=== PATIENT | female | born 1995 | race Caucasian/White ===

== ENCOUNTER 2024-11-22 21:54 | Inpatient (IN) | payer BC, SELFPAY ==
--- NOTE | ~2024-11-22 | US_ITS ---
EXAMINATION: US OB limited DATE: 11/22/2024 23:15 INDICATION: Vaginal bleeding. Assess placenta. TECHNIQUE: Real-time ultrasound of the pelvis was performed. The interpreting radiologist was not present for the study. COMPARISON: None. FINDINGS: There is a single living fetus in vertex presentation. The placenta is fundal and not low-lying. Vascular flow seen on color Doppler within the heterogeneously hypoechoic retroplacental complex with no evident subchorionic hematoma. heart rate is 129 beats per minute (bpm). The amniotic fluid vo lume is subjectively normal. IMPRESSION: 1. Single living fetus in vertex presentation with heart rate of 129 bpm. 2. Normal fundal placenta. Reviewed, dictated and finalized at location A. IMPRESSION: 1. Single living fetus in vertex presentation with heart rate of 129 bpm . 2. Normal fundal placenta.
[2024-11-22 22:30] VITALS: PULSE 96; O2SAT 100
[2024-11-22 22:31] VITALS: BP 124/79; PULSE 97; RESP 19; TEMP 36.6
[2024-11-22 23:30] LABS: Add Urine Microscopic? YES; Appearance Urine Clear (Clear); Glucose Urine UA Negative (Negative); Leukocyte Esterase Ur Negative LEU/UL (Negative); Need Manual Microscopic Reviewed; Nitrate Urine Negative (Negative); Non Pathogenic Casts 0-2; Specific Grav Ur 1.007 (1.001-1.035)
[2024-11-23] VITALS (189 sets, daily range): BP systolic 44–137; BP diastolic 25–122; PULSE 49–166; RESP 15–18; TEMP 36.5–36.9; O2SAT 87–100
[2024-11-23 00:56] LABS: Hematocrit 36.4 % (37.0-47.0); Hemoglobin 12.2 g/dL (12.0-15.0); Mean Corpuscular HGB Conc 33.5 g/dl (32-36); Mean Corpuscular Hemoglobin 32.4 pg (26-34); Mean Corpuscular Volume 96.6 fl (80-100); Platelet Count Result 220 k/mm3 (150-375); Red Blood Count 3.77 M/mm3 (4.2-5.4); White Blood Count 11.7 K/mm3 (4.5-10.0)
[2024-11-23 01:08] LABS: INR 0.9; Partial Thromboplastin Time 25.0 Seconds (22.3-36.8); Prothrombin Time 12.5 Seconds (11.1-14.7)
[2024-11-23 01:09] LABS: Fibrinogen 380 mg/dl (215-510)
--- NOTE | 2024-11-23 02:38 | P.HP_ITS ---
H&P: HPI History of Present Illness Date/Time: 11/23/24 02:38 Chief Complaint: Bleeding Narrative: 29 y/o at 36 weeks with an EDC of 12/18/24. She presented with c/o bloody fluid at 2130. PNC uncomplicated. She states earlier in there was a question of SGA but dates were changed and no issues. She did have a recent abnormal 1 hour and was scheduled for upcoming three hour. She was seen at [facility] and was transitioning to be seen at [facility] this week. On presentation to L and D she did have dark blood at the perineum and blood on glove. She continued to have mild bleeding. She was yaya every 2-5 minutes. Brief limited ultrasound showed fundal placenta. One pocket of fluid measured ABDIRAHMAN 4. She states she did get rhogam during this . BT today Opos, antibody positive, type pending. Review of Systems Review of Systems: All systems reviewed & are unremarkable except as noted in HPI and below Constitutional: Constitutional: Reports no additional constitutional complaints and Denies headache(s) Eyes: Eyes: Denies spots in vision ENT: Reports system reviewed and no additional complaints, except as documented and Denies headache(s) Cardiovascular: Cardiovascular: Denies chest pain and Denies dyspnea Respiratory: Respiratory: Denies dyspnea Gastrointestinal: Gastrointestinal: Reports no additional gastrointestinal complaints Genitourinary: Genitourinary: Reports amenorrhea Musculoskeletal: Musculoskeletal: Reports no additional musculoskeletal complaints Integumentary/Breasts: Skin/Breast: Denies breast mass and Denies rash Neurologic: Denies headache(s) Psychiatric: Psychiatric: Reports no additional psychiatric complaints Meds Vital Signs Vital Signs - 24 hr 11/22/24 22:30 11/22/24 22:31 11/23/24 00:44 Pulse Rate 97 94 Blood Pressure 124/79 107/77 Pulse Oximetry 100 11/23/24 00:55 11/23/24 01:07 11/23/24 01:12 Pulse Rate Blood Pressure Pulse Oximetry 99 100 100 11/23/24 01:15 11/23/24 01:17 11/23/24 01:22 Pulse Rate 92 Blood Pressure 117/72 Pulse Oximetry 99 100 11/23/24 01:27 11/23/24 01:29 11/23/24 01:32 Pulse Rate 98 Blood Pressure 114/83 Pulse Oximetry 100 99 11/23/24 01:37 11/23/24 01:42 11/23/24 01:45 Pulse Rate 90 Blood Pressure 119/75 Pulse Oximetry 99 99 11/23/24 01:47 11/23/24 01:52 11/23/24 01:57 Pulse Rate Blood Pressure Pulse Oximetry 99 99 99 11/23/24 02:00 11/23/24 02:02 11/23/24 02:07 Pulse Rate 92 Blood Pressure 124/71 Pulse Oximetry 99 100 11/23/24 02:12 11/23/24 02:15 11/23/24 02:17 Pulse Rate 97 Blood Pressure 113/75 Pulse Oximetry 99 99 11/23/24 02:20 11/23/24 02:21 11/23/24 02:26 Pulse Rate Blood Pressure Pulse Oximetry 98 99 99 11/23/24 02:30 11/23/24 02:35 Pulse Rate 93 Blood Pressure 105/88 Pulse Oximetry 97 Exam Const: General: no acute distress Eyes: General: appearance normal, both eyes and all related structures Resp: Effort & Inspection: normal respiratory effort Cardio: Rate: regular rate GI: Other: Gravid no fundal tenderness no right upper quadrant pain : Other: dark blood with exam, cervix 2.5/70/-2, no BOW palpated Skin: General skin exam: no rashes or lesions noted Neuro: Cognition (Neuro): normal cognition Extrem: General: normal to inspection Psych: Mental Status: mental status grossly normal H&P: Results Labs Labs: Short CBC 11/23/24 Range/Units 00:40 WBC 11.7 H (4.5-10.0) K/mm3 Hgb 12.2 (12.0-15.0) g/dL Hct 36.4 L (37.0-47.0) % Plt Count 220 (150-375) k/mm3 Urine 11/22/24 Range/Units 23:04 Urine Color Amara (Yellow) Urine Appearance Clear (Clear) Urine pH 7.0 (5.0-9.0) Ur Specific [place] 1.007 (1.001-1.035) Urine Protein Negative (Negative) mg/dL Urine Glucose (UA) Negative (Negative) mg/dL Assessment and Plan Assessment and plan (1) Third trimester bleeding: Code(s): O46.93 - Antepartum hemorrhage, unspecified, third trimester Status: Acute Assessment and Plan: Clinical abruption. Possible PROM. Early labor. Will proceed with labor. If any signs of distress with her or baby or heavy bleeding then would need a section. She voiced understanding. Reassuring tracing. Hemodynamicly stable. Positive antibody screen. Per patient history she had rhogam with current and last . BT O positive.
[2024-11-23] MEDS: LACTATED RINGERS 1,000 ML 125 ML IV CONT ×2 (03:50→08:43)
[2024-11-23] MEDS: AMPICILLIN SODIUM 2 GM in SODIUM CHLORIDE 0.9% IV 100 ML 200 ML IVPB (03:51)
[2024-11-23 05:02] LABS: Syphilis IgG/IgM Antibody Non-Reactive (Nonreactive)
--- NOTE | 2024-11-23 05:30 | IVDEFINITY ---
Prior to administration of IV Definity the patient was educated on the risks and benefits of the imaging enhancing agent including potential adverse side effects. The patient verbalized understanding. Allergies were verified. No exclusion criteria were identified and at least one of the following inclusion criteria were met: 1) physician request, 2) patient technically difficult to image (per the [place] [employer]ocardi[employer] guidelines of two or more segments not discernable within the apical view), or 3) questionable left ventricular function. ?
[2024-11-23 05:31] LABS: Cannabinoid Screen Urine Negative (Negative)
[2024-11-23 05:50] LABS: HIV 1/2 Ab P24 Ag Result Negative (Negative)
--- NOTE | 2024-11-23 06:22 | WPDANESEPP ---
Anes - Eval Pre Procedure Procedure: Labor epidural Date/Time: 11/23/24 06:22 Surgeon: Ethel Preop Diagnosis: Abdominal pain with contractions Pre Op Diagnosis: Bleeding Patient Data Age: 29 Gender: F Height: Weight: Last Vital Signs Temp 97.8 F 11/23/24 04:45 Pulse 98 11/23/24 06:15 Resp 16 11/23/24 04:45 BP 109/80 11/23/24 06:15 Pulse Ox 100 11/23/24 06:19 Allergies Allergy/AdvReac Type Severity Reaction Status Date / Time dog dander Allergy Mild Itching Verified 11/23/24 03:54 Laboratory Tests 11/22/24 11/23/24 11/23/24 23:04 00:40 04:18 WBC 11.7 H K/mm3 (4.5-10.0) RBC 3.77 L M/mm3 (4.2-5.4) Hgb 12.2 g/dL (12.0-15.0) Hct 36.4 L % (37.0-47.0) MCV 96.6 fl (80-100) MCH 32.4 pg (26-34) MCHC 33.5 g/dl (32-36) RDW 13.0 % (11.5-14.5) Plt Count 220 k/mm3 (150-375) MPV 10.3 fl (7.4-10.4) PT 12.5 Seconds (11.1-14.7) INR 0.9 APTT 25.0 Seconds (22.3-36.8) Fibrinogen 380 mg/dl (215-510) Urine Color Amara (Yellow) Urine Appearance Clear (Clear) Urine pH 7.0 (5.0-9.0) Ur Specific [place] 1.007 (1.001-1.035) Urine Protein Negative mg/dL (Negative) Urine Glucose (UA) Negative mg/dL (Negative) Urine Ketones Negative mg/dL (Negative) Ur Blood (Man) 3+ H (Negative) Urine Nitrate Negative (Negative) Urine Bilirubin Negative (Negative) Urine Urobilinogen 0.2 mg/dL (<2.0) Add Ur Microanalysis Reviewed Leukocyte Esterase Rfl Negative RAF/UL (Negative) Urine RBC 3-5 H /hpf (0-2) Urine WBC 0-5 /hpf (0-3) Ur Squamous Epith Cells Occasional /hpf (Few) Urine Bacteria None seen /hpf Urine Casts 0-2 Urine Opiates Screen Negative (Negative) Urine Methadone Screen Negative (Negative) Ur Barbiturates Screen Negative (Negative) Ur Phencyclidine Scrn Negative (Negative) Ur Amphetamine Screen Negative (Negative) U Benzodiazepines Scrn Negative (Negative) Urine Cocaine Screen Negative (Negative) U Cannabinoids Screen Negative (Negative) Syphilis IgG/IgM Ab Non-reactive (Nonreactive) HIV 1&2 Ab/P24 Ag 4thGn Negative (Negative) Blood Type Antibody Screen Antibody Identification Pending Antigen Identification Pending VANDANA, IgG Interpret Pending VANDANA, Poly Interpret Pending VANDANA, Complement Interp Pending KB Hemoglobin Negative : gestational age HCG: positive Patient hx anesthesia problems: none Family hx anesthesia problems: none Results Review: All pre-operative results and documents have been reviewed as part of the pre-operative evaluation. [facility] Past Medical History Medical History (Updated 11/23/24 @ 06:22 by Joon Barrera Jr., CRNA) and not yet delivered Social History Social History Smoking status: Never smoker Second hand tobacco smoke exposure: No Substance use: never Lack of Transportation: No Lack of Food: Never True Current Housing: I Have Housing Concerned About Future Housing: No Difficulty Paying Gas/Electric Bills: No Difficulty Paying for Meds: No Currently Unemployed: No Education: Master's Degree or Higher Difficulty w/ Childcare or Family Care: No Spiritual care concerns: No Exam Day of Procedure 11/23/24 06:22 Patient weight: overweight
[2024-11-23] MEDS: OXYTOCIN 30 UNITS/NS 500 ML 30 UNITS/500 ML BAG IV CONT (07:00)
[2024-11-23] MEDS: OXYTOCIN 30 UNITS/NS 500 ML 30 UNITS/500 ML BAG 125 UNITS IV CONT (12:08)
--- NOTE | 2024-11-23 12:41 | S_PTH ---
PATIENT: Valencia Mendez LOC: [facility] U#:[id number] AGE/SX: 29/F ROOM: [facility] RE11/23/[address]: Dima Davenport MD : 1995 BED: 1 DIS: 11/25/2024 SPEC #: [id number] RECD: 11/23/24 12:58 STATUS: JOSE REAndre #: [id number] CHERYL: 11/23/24 12:[address]: Dima Davenport DEPT: [facility] Surgical RECD BY: Belle Christianson MLT, ([facility]) ENTERED: 11/23/24 12:59 SP TYPE: Surgical OTHR DR: PHYSICIAN NOT ON STAFF Tissues: A - Placenta Procedures: Hematoxylin and Eosin Stain Gross and Microscopic Level 5
--- NOTE | 2024-11-23 14:24 | PM.OBPRVD ---
OB - Vaginal Delivery Note Procedure Delivery date: 11/23/24 Events: Other (Vaginal bleeding ) Delivery augmentation: Pitocin Delivery monitor: External FHT Route of delivery: Episiotomy description: None Laceration Description: Vaginal and Other (left periurethral) Delivery repair: vicryl (2.0 vicryl) Specimen: Yes Quantitative Blood Loss (ml): 400 Anesthesia type: Epidural Disposition: Floor Complications: No immediate complications Narrative: She presented to L and D with complaints of vaginal bleeding. She had mild vaginal bleeding. Possible LOF 930 pm, since no BOW palpated at her exam. She was yaya. Cervix was dilating. Ampicillin started for GBS prophylaxis for and on chart review, she had GBS in urine in early . Abruption labs normal. Bedside ultrasound normal. tracing reassuring. She progressed into active labor. She progressed to complete. Forebag ruptured clear fluid. She delivered a female infant. Nose mouth suctioned with bulb. The rest of delivered. Infant placed on maternal abdomen vigorously crying. Delayed cord clamping for one minute. Cord doubly clamped and cut. Pitocin started. Placenta delivered spontaneously, trailing membranes. There was after coming clots. Uterine tone good. She sustained a periurethral left laceration and vaginal laceration at introitus repaired with 3.0 vicryl. Total ebl 400cc. Baby Date of : 11/23/24 Time of : 11:21 Gestational Age by Date: 36 Infant gender: Female Weight (pounds): 6 Weight (ounces): 5 presentation: vertex position: Right Occiput Anterior Placenta delivery description: Spontaneous score one minute: 8 score five minutes: 8
--- NOTE | 2024-11-23 16:22 | PC.NURSE ---
1610. Introductions were made, then consulted with patient to assess needs related to . Discussed with mother her plans to feed her and the experience so far. Encouraged mother to express any questions or concerns she has regarding feedings. Advised her to call out for a latch check or if she needs assistance waking or positioning baby. Reviewed the blue feeding worksheet for required output and feeding at least 8-12 times every 24 hours. Resources provided for inpatient and outpatient services with the feeding sheet, mom/baby guide, and name/number written on the communication board. Mother voiced understanding of information and will call if there is a request for assistance. Observed mother latching to the left breast in cross cradle position. was able to maintain an appropriate latch. Mother declines nipple pain/discomfort throughout feeding. Encouraged mother to keep infant awake and nursing at the breast for as long as baby desires. Mother taught to listen for swallowing during feedings. Reviewed using the blue feeding sheet to record time and duration of feeding. Mother voiced understanding of the education shared, to call for assistance if the does not latch or if there is discomfort with . name/number on communication board. Reported to the Primary RN.?
[2024-11-24] MEDS: ACETAMINOPHEN 325 MG TABLET 650 MG PO ×3 (04:10→17:20)
[2024-11-24 05:05] LABS: Hematocrit 32.8 % (37.0-47.0); Hemoglobin 10.7 g/dL (12.0-15.0)
[2024-11-24 07:30] VITALS: PULSE 85; RESP 16; O2SAT 98
[2024-11-24 07:55] VITALS: BP 108/71; PULSE 85; RESP 16; TEMP 36.6; O2SAT 98
--- NOTE | 2024-11-24 09:56 | P.PNOB_ITS ---
OB - PN: Subj Subjective Date/time seen: 11/24/24 09:56 Patient comments: pain well controlled, tolerating diet and other (Decreasing lochia.) baby status: doing well and nursing well [place] feeding status: exclusively breast feeding OB - PN: Obj Data Labs 11/24/24 03:57 Labs: Laboratory Results - last 24 hr 11/23/24 11/23/24 11/24/24 09:31 11:04 03:57 Hgb 10.7 L Hct 32.8 L POC Capillary Glucose 68 71 OB - PN A/P Plan day: 1 Plan: routine care Comments: Patient doing well. Time Spent With Patient Time: Total time spent is greater than 50% in coordination of care (as documented) at patient's floor/unit and/or counseling patient: Exam 2 Psych: Affect: normal affect Other: Abd: fundus firm below umbilicus, nontender Perineum: healing Ext: nontender
[2024-11-24] MEDS: MULTIVIT/MIN/PREN/FOL AC/IRON TABLET 1 TAB PO (10:54)
[2024-11-24] MEDS: DOCUSATE SODIUM 100 MG CAPSULE PO (10:55)
--- NOTE | 2024-11-24 12:58 | PC.NURSE ---
1250. Mother verbalizes she is able to independently latch infant with appropriate positioning and alignment. She denies any nipple discomfort and is responsively . is currently meeting outcomes for weight, output, jaundice, blood sugar and feeding frequencies of 8-12 times in 24 hours. Mother declines any additional assistance or education at this time. Mother is encouraged to call for assistance if her doesn?t latch, pain with latching, questions or concerns. Mother voiced understanding of information shared along with the mom/baby guide for an additional resource. Reported to the Primary RN.
--- NOTE | 2024-11-24 14:24 | WPDANLDPN2 ---
Anes-Prog Note L&D Date/Time: 11/24/24 14:24 Comfortable throughout: labor and delivery Neuraxial method: epidural Epidural/Spinal procedure site: clean & non-tender Neuro status: Neuro function grossly intact. Cardiovascular status: normal Respiratory status: normal Airway patency: baseline Mental status: baseline Post-Op hydration status: normal Vital Signs: Last Vital Signs Temp 36.6 C 11/24/24 07:55 Pulse 85 11/24/24 07:55 Resp 16 11/24/24 07:55 BP 108/71 11/24/24 07:55 Pulse Ox 98 11/24/24 07:55 O2 Del Method Room Air 11/24/24 07:30 Pain score (VAS): 1 Post-procedural complaints: none Patient feedback: Patient satisfied with anesthetic care.
[2024-11-24 19:45] VITALS: BP 116/75; PULSE 85; RESP 18; TEMP 36.9; O2SAT 100
[2024-11-25] MEDS: ACETAMINOPHEN 325 MG TABLET 650 MG PO ×3 (00:30→16:06)
[2024-11-25 07:43] VITALS: BP 127/85; PULSE 80; RESP 18; TEMP 36.3; O2SAT 100
--- NOTE | 2024-11-25 08:13 | PM.OBDSVD ---
DS: Admitting Diagnosis Discharge Date 11/24/2024 <Dima Davenport MD - Last Filed: 11/26/24 05:01> 11/25/2024 <Lorena Cates MD - Last Filed: 11/25/24 09:31> Admitting Diagnosis 3rd trimester bleeding consistent with mild clinical abruption <Dima Davenport MD - Last Filed: 11/26/24 05:01> DS: Discharge Diagnosis Discharge Diagnosis (1) Third trimester bleeding: Code(s): O46.93 - Antepartum hemorrhage, unspecified, third trimester <Dima Davenport MD - Last Filed: 11/26/24 05:01> Status: Acute <Dima Davenport MD - Last Filed: 11/26/24 05:01> (2) Placenta abruption, delivered, current hospitalization: Code(s): O45.90 - Premature separation of placenta, unspecified, unspecified trimester <Dima Davenport MD - Last Filed: 11/26/24 05:01> Status: Acute <Dima Davenport MD - Last Filed: 11/26/24 05:01> (3) Vaginal delivery: Code(s): O80 - Encounter for full-term uncomplicated delivery <Dima Davenport MD - Last Filed: 11/26/24 05:01> Status: Acute <Dima Davenport MD - Last Filed: 11/26/24 05:01> OB - DS: Summary Hospital Course Hospital Course: patient was admitted to the hospital after having bleeding. She had normal abruption labs. No hemodynamic instability. She was starting to contract she did progress into labor. She had Pitocin augmentation. She then had an uncomplicated vaginal delivery. She did well . Minimal lochia, vital stable. Postop H&H was 10.7/32.8. Baby was doing well. She had adequate pain control on day 1 was ambulating well. tolerating regular food on day 1. <Dima Davenport MD - Last Filed: 11/26/24 05:01> OB Procedures : Ultrasound <Dima Davenport MD - Last Filed: 11/26/24 05:01> OB Procedures Intrapartum: Spontaneous Vag Delivery <Dima Davenport MD - Last Filed: 11/26/24 05:01> OB Procedures: : None <Dima Davenport MD - Last Filed: 11/26/24 05:01> Peripartum Data Delivery Method: Natural Vaginal <Dima Davenport MD - Last Filed: 11/26/24 05:01> Laceration Description: Vaginal and Other (left periurethral) <Dima Davenport MD - Last Filed: 11/26/24 05:01> Episiotomy description: None <Dima Davenport MD - Last Filed: 11/26/24 05:01> complications: none <Dima Davenport MD - Last Filed: 11/26/24 05:01> Status at Discharge Functional status at discharge: independent ambulation <Dima Davenport MD - Last Filed: 11/26/24 05:01> Overall status at discharge: patient is back to baseline <Lorena Cates MD - Last Filed: 11/25/24 09:31> Time Spent with Patient Time attestation: Total time spent providing and/or coordinating discharge services: <Dima Davenport MD - Last Filed: 11/26/24 05:01> Exam Const: General: cooperative <Dima Davenport MD - Last Filed: 11/26/24 05:01> Orientation/consciousness: oriented to person, oriented to place and oriented to time <Dima Davenport MD - Last Filed: 11/26/24 05:01> HENMT: Face/Nose/Sinus: Normal external nose present <Dima Davenport MD - Last Filed: 11/26/24 05:01> Eyes: General: appearance normal, both eyes and all related structures <Dima Davenport MD - Last Filed: 11/26/24 05:01> Resp: Effort & Inspection: normal respiratory effort <Dima Davenport MD - Last Filed: 11/26/24 05:01> Auscultation: clear to auscultation bilaterally <Lorena Cates MD - Last Filed: 11/25/24 09:31> Cardio: Rate: regular rate <Lorena Cates MD - Last Filed: 11/25/24 09:31> GI: Inspection: normal to inspection <Dima Davenport MD - Last Filed: 11/26/24 05:01> GI Palp: No abdominal tenderness and Yes Soft to palpation <Lorena Cates MD - Last Filed: 11/25/24 09:31> Auscultation: normal bowel sounds <Lorena Cates MD - Last Filed: 11/25/24 09:31> : Other: fundus firm <Lorena Cates MD - Last Filed: 11/25/24 09:31> Skin: General skin exam: normal color <Dima Davenport MD - Last Filed: 11/26/24 05:01> Neuro: General: oriented to person, oriented to place and oriented to time <Dima Davenport MD - Last Filed: 11/26/24 05:01> Extrem: General: normal to inspection and no calf tenderness <Dima Davenport MD - Last Filed: 11/26/24 05:01> Psych: Appearance: grossly normal <Dima Davenport MD - Last Filed: 11/26/24 05:01> Mental Status: mental status grossly normal <Dima Davenport MD - Last Filed: 11/26/24 05:01> Affect: normal affect <Lorena Cates MD - Last Filed: 11/25/24 09:31> Attitude: cooperative <Lorena Cates MD - Last Filed: 11/25/24 09:31> DS: Data Data Completed and Pending Pending studies at discharge: Pending at discharge 11/23/24 12:41 Surgical [PTH] Routine <Dima Davenport MD - Last Filed: 11/26/24 05:01> Labs on day of discharge: Labs from last 24 hours 11/24/24 11/23/24 11/23/24 03:57 11:04 09:31 Hgb 10.7 L Hct 32.8 L POC Capillary Glucose 71 68 <Dima Davenport MD - Last Filed: 11/26/24 05:01> Discharge Plan Discharge Attending physician on discharge: Dima Davenport <Dima Davenport MD - Last Filed: 11/26/24 05:01> Dima Davenport <Lorena Cates MD - Last Filed: 11/25/24 09:31> Consulting providers: Joon Barrera Jr. <Dima Davenport MD - Last Filed: 11/26/24 05:01> Discharging Clinician: Lorena Cates <Dima Davenport MD - Last Filed: 11/26/24 05:01> Lorena Cates <Lorena Cates MD - Last Filed: 11/25/24 09:31> Anticipated Discharge Date/Time: 11/25/24 10:28 <Dima Davenport MD - Last Filed: 11/26/24 05:01> Patient Disposition: Home <Dima Davenport MD - Last Filed: 11/26/24 05:01> Activity: may shower and pelvic rest <Dima Davenport MD - Last Filed: 11/26/24 05:01> may shower and pelvic rest <Lorena Cates MD - Last Filed: 11/25/24 09:31> Diet: regular <Dima Davenport MD - Last Filed: 11/26/24 05:01> regular <Lorena Cates MD - Last Filed: 11/25/24 09:31> Discharge Instructions: Education: Mom and Baby Guide Given to: Mother Follow-Up: Call your delivering provider's office for an appointment to be seen in: 4-6 weeks [facility]. Appointment Date/Time: Wednesday, November 27, 2024 at 8:00 a.m. What to expect at your follow-up visit: Blood Pressure Check Physical Assessment Call [phone] if you are unable to keep your appointment time. BREAST CARE: * Wear a snug supportive bra. * For engorgement discomfort: Breast Feeding: * Apply warm moist washcloths * Express milk as needed to relieve engorgement * Wear loose clothing * For sore nipples: * Identify correct latch-on * Apply warm moist washcloths before and after nursing * Air dry nipples after nursing * May apply Lansinoh cream to nipples EPISIOTOMY/PERINEAL CARE: * Until bleeding stops, use your abhijeet bottle after urinating * Change your pad frequently throughout the day * You may take sitz baths several times a day (fill your bathtub with warm water and soak for 20 minutes.) Do NOT bathe in the water * No tub baths until seen by your physician - You may shower ACTIVITY: * Rest as much as possible. * Do not exercise or lift anything heavier than your baby (such as laundry or other children.) * Avoid stairs or driving as much as possible. * Do not put anything into the vagina. No douching, tampons, or sexual activity until seen by physician. NOTIFY PHYSICIAN IF YOU HAVE ANY QUESTIONS OR IF ANY OF THE FOLLOWING SYMPTOMS OCCUR: * If your perineum becomes red, swollen, or more painful than what you have experienced in the hospital. * If your vaginal bleeding becomes foul smelling. * If your vaginal bleeding becomes more heavy than a period or if your bleeding changes from pink to bright red. However, you may pass an occasional walnut-sized clot once or twice for the first week . * If you experience a sharp, shooting pain in you calves. * If you discover a hard, reddened area on your breast or if you experience flu-like symptoms. DIET: * Eat regular, well-balanced meals. * Drink plenty of fluids daily. If , drink to thirst. Call Dr. Davenport's office to schedule visit for 4-6 weeks after delivery. May take over the counter Ibuprofen and Tylenol. Follow package directions. Take daily vitamins. <Dima Davenport MD - Last Filed: 11/26/24 05:01> Patient Language: Tongan <Dima Davenport MD - Last Filed: 11/26/24 05:01> Stand Alone Forms: General Discharge Information <Dima Davenport MD - Last Filed: 11/26/24 05:01> Follow-up/Referrals: Dima Davenport MD [Physician, BROACH OPERATOR] - Call for Appointment Referral Note: Schedule visit for 4-6 weeks after delivery <Dima Davenport MD - Last Filed: 11/26/24 05:01> Discharge Medications: New acetaminophen 325 mg Tablet 650 mg PO Q6H PRN (Reason: Mild Pain (1-3) Or Headache) Qty: 60 0RF docusate sodium 100 mg Capsule 100 mg PO BID PRN (Reason: Constipation) Qty: 40 0RF ibuprofen 600 mg Tablet 600 mg PO Q6H PRN (Reason: Cramping) Qty: 40 0RF <Dima Davenport MD - Last Filed: 11/26/24 05:01> Date of admission: 11/22/24 21:54 <Dima Davenport MD - Last Filed: 11/26/24 05:01> Primary Care Provider: PHYSICIAN NOT ON STAFF,NONSTAFF <Dima Davenport MD - Last Filed: 11/26/24 05:01> Admitting Provider: Dima Davenport <Dima Davenport MD - Last Filed: 11/26/24 05:01> Attending physician on admission: Dima Davenport <Dima Davenport MD - Last Filed: 11/26/24 05:01> Condition: Stable <Dima Davenport MD - Last Filed: 11/26/24 05:01>
[2024-11-25] MEDS: DOCUSATE SODIUM 100 MG CAPSULE PO (08:53)
[2024-11-25] MEDS: MULTIVIT/MIN/PREN/FOL AC/IRON TABLET 1 TAB PO (08:53)
[2024-11-25 09:00] VITALS: PULSE 80; RESP 18; O2SAT 100
--- NOTE | 2024-11-25 11:45 | PC.NURSE ---
Mother verbalizes she is able to independently latch with appropriate positioning and alignment. She denies any nipple discomfort and is responsively . Baby has audible swallows and mom had an abundant milk supply with her first baby that came in on day 3 . is currently meeting outcomes for weight (8% loss), output (mom knows to watch output as a sign of adequate intake), jaundice, blood sugar and feeding frequencies of 8-12 times in 24 hours. Because baby is 36 weeks gestation, mom is advised to initiate pumping, even if she only does it a few times a day. Hands On Pumping handout given with Late handout. Mom has a breast pump at home and knows that a hospital pump is available if needed. Patient states that she will 'keep it in mind' to pump and will call out for further pumping guidance as needed. Patient seems confident and comfortable with her current plan. Mother declines any additional assistance or education at this time. Mother is encouraged to call for assistance if her infant doesn?t latch, pain with latching, questions or concerns. Mother voiced understanding of information shared along with the mom/baby guide for an additional resource. Reported to the Primary RN.
[2024-11-25] MEDS: RHO(D) IMMUNE GLOBULIN 300 MCG/2 ML SYRINGE IM (13:35)
--- NOTE | 2024-11-25 13:40 | PC.NURSE ---
Patient called out with some questions about initiating pumping. She is having her pump and bottles brought in from home. She pumped with her last baby and used a Lansinoh pump but has a Spectra now. We reviewed breast milk storage and use, frequency and duration of pumping, and syringe vs. bottle feeding any pumped milk. Patient knows that we have refrigerator and freezer milk storage options. She thinks that baby is sleepier today than yesterday and needs more stimulation to stay awake. Discussed expected behaviors of a 36 week and the importance of ensuring adequate breast stimulation until baby is able to feed effectively at every breast feeding. Primary RN updated.
[2024-11-27 08:06] VITALS: BP 121/89; PULSE 101; RESP 18; TEMP 36.8; O2SAT 100
--- OUTSIDE RECORDS SUMMARY | 2024-11-27 13:17 | XMS_ITS | Encounter Summary ---
Author Organization [facility] Address [address] [place] [address] Care Team Providers Care Art Gallery Internship Name Role Phone Unknown, Provider Primary Care Provider Unavaila ble Reason for Visit * Reason Onset Date Comments Follow-up 11/07/2024 Follow up; retun ing patient call Encounter Details Date Type Department Care Team (Late st Contact Info) Description 11/07/2024 Telephone [facility] - DESK EDITOR [address] [place] [address] Yamel Wilson APRN-[employer] SEQUESTRATION PLANT MANAGER [address] [place] [address] Follow-up (Follow up; retuning patient call) Social History Tobacco Use Types Packs/Day Years Used Date Smoking Tobacco: Never Assessed Estimated Date of Delivery Comme nts Yes 12/18/2024 Based on Ultraso und Sex and Gender Information Value Date Recorded Sex Assigned at Not on file Legal Sex Female 9:35 AM CDT Gender Identity Not on file Sexual Orientation Not on file documented as of this encounter Miscellaneous Notes * Telephone Encounter - Saritha Coates - 11/07/2024 9:47 AM CDT Patient has tested negative for covid but she still has symptoms and want to know what she should do Cb [phone] documented in this encounter Plan of Treatment Not on file documented as of this encounter Visit Diagnoses Not on filedocumented in this encounter Care Teams Art Gallery Internship Relationship Specialty Start Date End Date Unknown, Provider PCP - General 06/21/24 documented as of this encounter
--- OUTSIDE RECORDS SUMMARY | 2024-11-27 13:17 | XMS_ITS | Encounter Summary ---
Author Organization [facility] Address [address] [place] [address] Care Team Providers Care Impregnating Helper Name Role Phone Unknown, Provider Primary Care Provider Unavaila ble Reason for Visit * Reason Onset Date Comments Care 11/27/2024 Encounter Details Date Type Department Care Team (Late st Contact Info) Description 11/27/2024 Telephone [facility] - PROGRAM RESEARCH SPECIALIST [address] [place] [address] Group, u Program Manager [address] [place], [place] [id number] Care Social History Tobacco Use Types Packs/Day Years Used Date Smoking Tobacco: Never Smokeless Tobacco: Never Alcohol Use Standard Drinks/Week Comments Not Currently 0 (1 standard drink = 0.6 oz pur e alcohol) Education Answer Date Recorded What is the highest level of school you have completed or the highest degree you have received? Professional school degree (e.g., MD, DDS, DVM, MIKAEL) 11/17/2024 Estimated Date of Delivery Comme nts Yes 12/18/2024 Based on Ultraso und Sex and Gender Information Value Date Recorded Sex Assigned at Not on file Legal Sex Female 9:35 AM CDT Gender Identity Not on file Sexual Orientation Not on file Occupation Industry Job Start Date Job End Date [employer] Not on file Not on file Not on file documented as of this encounter Miscellaneous Notes * Telephone Encounter - Wang Baiie - 11/27/2024 8:42 AM CDT Good morning, Patient calling to inform the office that she delivered her baby early. She delivered over the weekend at [facility] in [place]. She has her 6 week post check up set up with them as well. CB: [phone] No need for a return call and appointments look like they have all been canceled accordingly. Thank you so much documented in this encounter Plan of Treatment Not on file documented as of this encounter Visit Diagnoses Not on filedocumented in this encounter Care Teams Impregnating Helper Relationship Specialty Start Date End Date Unknown, Provider PCP - General 06/21/24 documented as of this encounter
--- OUTSIDE RECORDS SUMMARY | 2024-11-27 13:17 | XMS_ITS | Encounter Summary ---
Author Organization [facility] Address [address] [place] [address] Care Team Providers Care Raw Products Director Name Role Phone Unknown, Provider Primary Care Provider Unavaila ble Reason for Visit * Reason Onset Date Comments Returned Call 11/07/2024 Encounter Details Date Type Department Care Team (Late st Contact Info) Description 11/07/2024 Telephone [facility] - COMMERCIAL REAL ESTATE UNDERWRITER [address] [place] [address] Yamel Wilson APRN-SINGLE STROKE PREFORMER [address] [place] [address] Returned Call Social History Tobacco Use Types Packs/Day Years [...] encounter Miscellaneous Notes * Telephone Encounter - Fela Metzger RN - 11/07/2024 11:17 AM CDT States tested positive for Covid Wednesday at Urgent Care. She has been asymptomatic until 1-2 days ago. Expresses symptoms has gotten progressively worse over the last couple days. During thelast 36 hrs has taken a total of 3 home Covid tests, in which have been negative. C/o a sore throaton left side of throat and experiencing hot flashes, chills, and sinus pressure. Denies ever having a fever, however states her normal body temperature runs on the lower end and usually has temps of 99 when she does have a fever. Reports feeling good movement, no contractions, and no increasing SOB. She is at family's house currently while is recovering. Advised to visit an UrgentCare to get tested for flu, COVID, and other respiratory illnesses. Discussed to visit the ER, [facility],or the closest clinic/hospital if she experiences increasing SOB, dyspnea, fatigue, decreased fetalmovement, severe vomiting, diarrhea, contractions, or severe rhythmic back pain. Verbalizes understanding. Says she will go to today for testing. List of medications sent via [employer] that are ok to take during . * Telephone Encounter - Nancy Lizama - 11/07/2024 10:55 AM CDT Pt returning call to office. CB: [phone] documented in this encounter Plan of Treatment Not on file documented as of this encounter Visit Diagnoses Not on filedocumented in this encounter Care Teams Raw Products Director Relationship Specialty Start Date End Date Unknown, Provider PCP - General 06/21/24 documented as of this encounter
--- OUTSIDE RECORDS SUMMARY | 2024-11-27 13:17 | XMS_ITS | Clinical Summary ---
Author Organization [facility] [employer] Address [address] [place] [address] Care Team Providers Care Human Resources Recruiter Name Role Phone Unknown, Provider Primary Care Provider Unavaila ble Source Comments [facility] [employer],non-owned Affiliates and Associated Physician Practices is amultiple site organization consisting of ambulatory clinics and hospital sitesin [place], [place], [place] and [place]. This disclosure is being madepursuant to the Care Everywhere program and may not contain all information available regarding this patient. Last updated 17.[facility] [employer] Allergies Active Allergy Reactions Criticality Noted Date Comments Cat Hair Extract Unknown 06/09/2024 Dog dander Medications * Be aware that medications may not be up to date on this document. Alwaysverify current medications with the patient. Vit-Fe Fumarate-FA ( vitamin) 28-0.8 MG tablet Take 1 (one) tablet by mouth once daily Active Active Problems Problem Noted Date Diagnosed Date High-risk , third trimester 11/17/2024 History of migraine during 06/21/2024 Overview (06/21/2024): Patient has a history of migraine headaches. The effect of is difficulty to predict - symptoms may worsen in early but approximately 30% of women note improvement during and 30% have no change in their headache frequency. Fortunately migraines are not associated with any increased risks of adverse outcomes. Reviewed the benefits of non-pharmacologic approaches to pain relief, avoidance of triggers, and prevention with Magnesium Oxide and Vitamin B2. Recommended Tylenol 1000mg for first line treatment. Acetaminophen intake should not exceed 4000 mg per day. Triptans are are acceptable in as a second line treatment - Maxalt is preferred, but if the patient has had good results with other triptans, the class of medications is overall safe. Discussed that it she still has a persistent headache despite acetaminophen and triptans, she should go to the emergency department or OB triage for additional assessment. Treatments in the ED compatible with may include IV magnesium, IV metoclopramide, and IV diphenhydramine. We also reviewed that a headache with a sudden onset, associated with elevated BP, or with different neurologic deficits from what she is already having would also warrant a visit to the emergency department to exclude stroke, preeclampsia, or other concerns. If headaches are of sufficient frequency and intensity to warrant chemoprophylaxis, propranolol or amitriptyline can be considered. NSAIDs, barbiturates, and ergotamine compounds should be avoided. If third line treatment is needed, conside referral to neurology. Recommendations: Start over the counter Magnesium Oxide and Vitamin B2 daily for prevention. When aura begins take 1000mg tylenol. Can consider Maxalt based on severity of headache and life events. POTS (postural orthostatic tachycardia syndrome) 06/21/2024 Overview (06/21/2024): has a variable effect on POTS symptoms. Some patients will experience improvement in symptoms; some will experience worsening in symptoms; and some will have no change in status. Management of POTS in is largely supportive. Slow, deliberate position changes can be helpful to give the body ample time to adjust. Water and salt supplementation coupled with exercise are the first line treatments, but patients who fail conservative management can be treated with beta blockers (metoprolol and propranolol are preferred) or fludrocortisone, all of which are safe in . Recommendations: Supplement water and salt with goals of 3L of water and 3-4g of sodium daily Aerobic exercise 3-4 times a week for 30-40 minutes If symptoms persist, establish care with local cardiology or internal medicine physician Short interval between pregn ancies affecting , antepartum 06/21/2024 Overview (06/21/2024): Interpregnancy intervals less than 18 months are associated with increased risks of some adverse outcomes. There are small increased risks of delivery, FGR/SGA, and low birthweight. Recommendations: Cervical length screening to assess for possible risk factors for PTD. Follow serial growth assessments in the 2nd and 3rd trimesters Estimated Date of Delivery Comme nts Yes 12/18/2024 Based on Ultraso und Encounters Date Type Department Care Team Description 11/27/2024 Telephone [facility] - DIRECTOR OF WOMEN'S SERVICES [address] [place] [id number] Group, u [facility] 11/22/2024 Telephone [facility] - DIRECTOR OF WOMEN'S SERVICES [address] [place] [id number] [facility], Clinic Question 11/17/2024 2:40 PM CDT visit [facility] - DIRECTOR OF WOMEN'S SERVICES [address] [place] [address] Liyah Dent MD GA: [id number] 11/17/2024 Travel 11/07/2024 Telephone [facility] - DIRECTOR OF WOMEN'S SERVICES [address] [place] [address] Yamel Wilson APRN-CNP Returned Call 11/07/2024 Telephone [facility] - DIRECTOR OF WOMEN'S SERVICES [address] [place] [address] Yamel Wilson APRN-CNP Follow-up (Follow up; retuning patient call) 11/04/2024 Telephone [facility] [address] [place] [address] Angela Cedeno MD Question 10/26/2024 7:30 AM CDT - 10/26/2024 11:59 PM CDT Hospital Encounter [facility] [address] [place] [address] Shiela Hanley MD Discharge Disposition: Home or Self Care 10/26/2024 Telephone [facility] - DIRECTOR OF WOMEN'S SERVICES [address] [place] [address] Shorey, Yamel, FORMING YARDAGE CONTROL OPERATOR-STICK FEEDER Appointment (Call to schedule a new pt appointment) 10/05/2024 7:35 AM CDT - 10/05/2024 11:59 PM CDT Hospital Encounter [facility] [address] [place] [address] Shiela Hanley MD Discharge Disposition: Home or Self Care 10/05/2024 7:30 AM CDT - 10/05/2024 7:34 AM CDT Hospital Encounter [facility] [address] [place] [address] Shiela Hanley MD Discharge Disposition: Home or Self Care 09/28/2024 7:33 AM CDT - 09/28/2024 11:59 PM CDT Hospital Encounter [facility] [address] [place] [address] Evens Casarez DO DIRECTOR OF WOMEN'S SERVICES Discharge Disposition: Home or Self Care 09/28/2024 7:30 AM CDT - 09/28/2024 7:32 AM CDT Hospital Encounter [facility] [address] [place] [address] Evens Casarez DO DIRECTOR OF WOMEN'S SERVICES Discharge Disposition: Home or Self Care 09/21/2024 8:03 AM CDT - 09/21/2024 11:59 PM CDT Hospital Encounter [facility] [address] [place] [address] Shiela Hanley MD Discharge Disposition: Home or Self Care 09/21/2024 7:30 AM CDT - 09/21/2024 8:02 AM CDT Hospital Encounter [facility] [address] [place] [address] Shiela Hanley MD Discharge Disposition: Home or Self Care 09/18/2024 Telephone [facility] [address] [place] [address] Martita Tan RN Results 09/12/2024 8:19 AM CDT - 09/12/2024 11:59 PM CDT Hospital Encounter [facility] [address] [place] [phone] Addison Martinez MD Discharge Disposition: Home or Self Care 09/12/2024 8:19 AM CDT - 09/12/2024 11:59 PM CDT Hospital Encounter [facility] [address] [place] [address] Addison Martinez MD Discharge Disposition: Home or Self Care 09/12/2024 8:15 AM CDT - 09/12/2024 8:18 AM CDT Hospital Encounter [facility] [address] [place] [address] Addison Martinez MD Discharge Disposition: Home or Self Care 09/07/2024 10:30 AM CDT - 09/07/2024 11:59 PM CDT Hospital Encounter [facility] [address] [place] [address] Shiela Hanley MD Discharge Disposition: Home or Self Care from Last 3 Months Immunizations Immunization Administration Dates Next Due Covid Pfizer primary monoval ent 12+ yr 0.3mL Purple cap 04/12/2020,03/08/2020 INFLUENZA VACCINE 11/06/2022 Rho D Immune Globulin 11/17/2024 TDAP (7yrs+) 11/17/2024,06/02/2023 Family History Relation Name Status Comments Father Alive Mother Alive Social History Tobacco Use Types Packs/Day Years Used Date Smoking Tobacco: Never Smokeless Tobacco: Never Alcohol Use Standard Drinks/Week Comments Not Currently 0 (1 standard drink = 0.6 oz pur e alcohol) Education Answer Date Recorded What is the highest level of school you have completed or the highest degree you have received? 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 on file Not on file Not on file Last Filed Vital Signs Vital Sign Reading Time Taken Comments Blood Pressure 100/60 11/17/2024 4:09 PM CDT Pulse 86 09/28/2024 8:20 AM CDT Temperature - - Respiratory Rate 18 09/28/2024 8:20 AM CDT Oxygen Saturation 99% 06/21/2024 2:58 PM CDT Inhaled Oxygen Concentration - - Weight 79.8 kg (176 lb) 11/17/2024 4:09 PM CDT Height 165.1 cm (5' 5) 11/17/2024 4:09 PM CDT Body Mass Index 29.29 11/17/2024 4:09 PM CDT Plan of Treatment Health Maintenance Due Date Last Done Comments HIV SCREENING 2010 HEPATITIS B VACCINE (1 of 3 - 19+ 3-dose series) 2014 HPV VACCINE (1 - 3-dose SCDM series) 2022 DEPRESSION SCREENING 02/23/2024 OB-ONE HOUR GLUCOSE 09/11/2024 COVID-19 VACCINE (3 - 2024-2 6 season) 2024 04/12/2020, 03/08/2020 INFLUENZA VACCINE (#1) 2024 11/06/2022 OB-GROUP B STREP SCREEN 11/13/2024 PAP SMEAR 09/14/2026 09/15/2023 DTAP/TDAP/TD VACCINES (3 - T d or Tdap) 11/17/2034 11/17/2024, 06/02/2023 ZOSTER VACCINE (1 of 2) 2045 HEPATITIS C SCREENING Completed 12/22/2022 OB-RHOGAM INJECTION Completed 11/17/2024, 05/14/2023 OB-TDAP CURRENT Completed 2024, 06/02/2023 HIB VACCINE Aged Out No longer eligi ble based on patient's age to complete this topic MENINGOCOCCAL (Group B) VACCINE SHARED DECISION-MAKING Aged Out No longer eligible based on patient's age to complete this topic MENINGOCOCCAL GROUPS A/C/Y/W VACCINE Aged Out No longer eligible b ased on patient's age to complete this topic PNEUMOCOCCAL VACCINE Aged Out No long er eligible based on patient's age to complete this topic Respiratory Syncytial Virus (RSV) Vaccine Pt: or over 60 yrs (No Doses Required) Completed Procedures Procedure Name Priority Date/Time Associated Diagnosis Comments URINALYSIS - POINT OF CARE (AMB) [facility] Routine 11/17/2024 2:56 PM CDT Impaired glucose in , antepartum (HCC) SONOGRAM - COMPLETE Routine 10/26/2024 7 :42 AM CDT POTS (postural orthostatic tachycardia syndrome) Short interval between pregnancies affecting , antepartum (HCC) 32 weeks gestation of (HCC) Encounter for ultrasound to assess growth (HCC) SONOGRAM - COMPLETE Routine 10/05/2024 7 :51 AM CDT History of migraine during POTS (postural orthostatic tachycardia syndrome) Short interval between pregnancies affecting , antepartum (HCC) 31 weeks gestation of (HCC) Poor growth affecting management of mother in muniz in third trimester (HCC) BIOPHYSICAL PROFILE W NST Routine 09/28/2024 7:49 AM CDT History of migraine during POTS (postural orthostatic tachycardia syndrome) Short interval between pregnancies affecting , antepartum (HCC) 29 weeks gestation of (HCC) Poor growth affecting management of mother in muniz in third trimester (HCC) BIOPHYSICAL PROFILE W NST Routine 09/21/2024 7:57 AM CDT History of migraine during POTS (postural orthostatic tachycardia syndrome) Short interval between pregnancies affecting , antepartum (HCC) 29 weeks gestation of (HCC) Poor growth affecting management of mother in muniz in third trimester (HCC) BIOPHYSICAL PROFILE W NST Routine 09/12/2024 8:39 AM CDT History of migraine during POTS (postural orthostatic tachycardia syndrome) Short interval between pregnancies affecting , antepartum (HCC) Encounter for ultrasound (HCC) Second (HCC) 27 weeks gestation of (HCC) SONOGRAM - COMPLETE Routine 09/07/2024 1 1:28 AM CDT History of migraine during POTS (postural orthostatic tachycardia syndrome) Short interval between pregnancies affecting , antepartum (HCC) Encounter for ultrasound (HCC) Second (HCC) Hx of migraines 27 weeks gestation of (HCC) from Last 3 Months Results * URINALYSIS - POINT OF CARE (AMB) [facility] (11/17/2024 2:56 PM CDT) Specific [place] UA 1.[address] [facility] [address] pH UA [address] [facility] [address] WBC UA neg [facility] [address] Nitrite UA neg [facility] [address] Protein UA trace [facility] [address] Glucose UA normal [facility] [address] Ketones UA POCT neg [facility] [address] Urobilinogen UA normal [facility] [address] Bilirubin UA POCT neg [facility] [address] Blood Urine POCT neg [facility] [address] Urine URINE / Unknown 11/17/2024 2 :56 PM CDT Liyah Costa MD LAB - POINT OF CARE OR DERABLES Final Result [facility] [address] [place] [address], [facility] [phone] * Sonogram - Complete (10/26/2024 7:42 AM CDT) Only the most recent of3 resultswithin the time period is included. Linked Results Indication ======== Short interval POTS, Migraines on no medication, Short interval History ====== OB History 2. Para 1 [id number] 1. live 08/02/2023. Details: Vaginal delivery, full-term Lab Tests Test Date Result NIPT Low risk Maternal Assessment Physical Exam Height 165 cm, 5 ft 5 in. Weight 78 kg, 171 lb. Initial weight 67 kg, 147 lb. BMI 28.46 kg/m . Initial BMI 24.46 kg/m . Weight gain 11 kg, 24 lb Method ====== Transabdominal ultrasound. View: Sufficient ========= Muniz . Number of fetuses: 1 Dating ====== Date Details Gest. age SONY LMP 03/01/2024 Cycle: regular cycle. Cycle length 30 d 34 w + 1 d 12/06/2024 LMP, jake. by cycle 33 w + 6 d 12/08/2024 length Stated SONY 04/27/2024 32 w + 3 d 12/18/2024 Previous U/S 04/27/2024 GA, GA 6 w + 3 d 32 w + 3 d 12/18/2024 U/S 10/26/2024 based upon AC, BPD, Femur, HC 33 w + 3 d 12/11/2024 Assigned dating based on ultrasound (GA), selected on 10/05/2024 32 w + 3 d 12/18/2024 General Evaluation Cardiac activity present. FHR 164 bpm. Presentation: cephalic Placenta: Placental site: posterior Amniotic fluid: Amount of AF: normal. MVP 5.1 cm. ABDIRAHMAN 13.7 cm. Q1 5.1 cm, Q2 1.9 cm, Q3 2.7 cm, Q4 4.2 cm Biometry BPD 85.2 mm 34w 2d 90% Hadlock HC 307.4 mm 34w 2d 63% Hadlock AC 297.4 mm 33w 5d 84% Hadlock Femur 60.9 mm 31w 4d 18% Hadlock Humerus 53.1 mm 30w 6d 17% Vern HC / AC 1.03 Weight Calculation: EFW 2,150 g 65% Hadlock EFW (lb,oz) 4 lb 12 oz EFW by Hadlock ([id number]) appropriate Growth Overview Exam date GA BPD (mm) HC (mm) AC (mm) FL (mm) HL (mm) EFW (g) 06/21/2024 16w 0d 30.3 25% 113.1 13% 97.7 46% 16.7 10% 15.6 4% 124 13% 07/20/2024 20w 1d 40.9 2% 158.1 2% 152.3 54% 29.5 11% 28.8 25% 305 21% 08/18/2024 24w 2d 54.2 3% 210.7 5% 185.6 16% 40.7 10% 36 3% 575 8% 09/07/2024 27w 1d 67.1 35% 247.5 15% 207.4 4% 47.8 9% 42.5 6% 854 6% 09/21/2024 29w 1d 73.4 48% 268.7 21% 239 18% 51.7 6% 45.1 2% 1187 12% 10/05/2024 29w 3d 78.8 93% 282.2 61% 266.7 82% 55.4 28% 47.2 9% 1559 70% 10/26/2024 32w 3d 85.2 90% 307.4 63% 297.4 84% 60.9 18% 53.1 17% 2150 65% Anatomy sex: female. Impression ========= Single, live, intrauterine at 32w 3d The size is appropriate. The amniotic fluid volume is normal. No major malformations were seen within the limits of ultrasound. Comment ======== ultrasound alone cannot detect all structural, genetic, or functional , placental, or maternal abnormalities Follow-up ======== Follow up ultrasound in 4 weeks for growth assessment. Coding ====== Diagnoses O09.293: Supervision of with other poor reproductive or obstetric history O36.5168: Maternal care for known or suspected placental insufficiency Procedures 63331: US Preg Uterus Follow Up [employer] PACS Anatomical Region Laterality Modality Other 10/26/2024 7:42 AM CDT Crystal Stanley APNP-STICK FEEDER [facility] ORDERABLES Edited Result - Final * Biophysical Profile w NST (09/28/2024 7:49 AM CDT) Only the most recent of3 resultswithin the time period is included. Linked Results Indication ======== Poor Growth, Small for Dates, Placental insufficiency Suspected SGA Short interval POTS, Migraines on no medication, Short interval History ====== OB History 2. Para 1 [id number] 1. live 08/02/2023. Details: Vaginal delivery, full-term Lab Tests Test Date Result NIPT Declined Maternal Assessment Physical Exam Height 165 cm, 5 ft 5 in. Weight 75 kg, 165 lb. Initial weight 67 kg, 147 lb. BMI 27.46 kg/m . Initial BMI 24.46 kg/m . Weight gain 8 kg, 18 lb Method ====== Transabdominal ultrasound examination. View: Sufficient ========= Muniz . Number of fetuses: 1 Dating ====== Date Details Gest. age SONY LMP 03/01/2024 Cycle: regular cycle. Cycle length 30 d 30 w + 1 d 12/06/2024 LMP, jake. by cycle 29 w + 6 d 12/08/2024 length Stated SONY 04/27/2024 US measurements 6w3d 30 w + 1 d 12/06/2024 Previous U/S 05/25/2024 GA, GA 11 w + 2 d 29 w + 2 d 12/12/2024 Assigned dating based on the LMP, selected on 06/21/2024 30 w + 1 d 12/06/2024 General Evaluation Cardiac activity present. FHR 138 bpm. movements: visualized. Presentation: cephalic Placenta: Placental site: posterior Amniotic Fluid Assessment ==== Amount of AF: normal MVP 5.3 cm. ABDIRAHMAN 17.0 cm. Q1 2.5 cm, Q2 5.3 cm, Q3 4.3 cm, Q4 4.9 cm Biophysical Profile 2: breathing movements 2: Gross body movements 2: tone 2: Amniotic fluid volume NST: reactive 12/01 Biophysical profile score Non Stress Test NST interpretation: reactive. Test duration 34 min. Baseline FHR 130 bpm. Baseline variability: moderate. Accelerations: present. Decelerations: absent. Uterine activity: absent Growth Overview Exam date GA BPD (mm) HC (mm) AC (mm) FL (mm) HL (mm) EFW (g) 06/21/2024 16w 0d 30.3 25% 113.1 13% 97.7 46% 16.7 10% 15.6 4% 124 13% 07/20/2024 20w 1d 40.9 2% 158.1 2% 152.3 54% 29.5 11% 28.8 25% 305 21% 08/18/2024 24w 2d 54.2 3% 210.7 5% 185.6 16% 40.7 10% 36 3% 575 8% 09/07/2024 27w 1d 67.1 35% 247.5 15% 207.4 4% 47.8 9% 42.5 6% 854 6% 09/21/2024 29w 1d 73.4 48% 268.7 21% 239 18% 51.7 6% 45.1 2% 1187 12% Anatomy The following structures appear normal: Abdomen Stomach. Kidneys. Bladder. sex: female. Doppler Umbilical Artery: normal PI 0.98 56% Tracy S / D 2.79 48% Tracy Impression ========= Here today for testing and Doppler studies due to suspected SGA. Single, live, intrauterine at 30w 1d The size lower limits of AGA The amniotic fluid volume is normal. The biophysical profile is reassuring 12/01. The umbilical artery Dopplers is normal. Comment ======== ultrasound alone cannot detect all structural, genetic, or functional , placental, or maternal abnormalities Follow-up ======== To continue with weekly testing/Doppler studies. Repeat interval growth ultrasound in 1 week. Depending on subsequent findings will also determine further management. labor and preeclampsia precautions along with kick counts. Thank you for allowing us to partake in your patient's care. Coding ====== Diagnoses O09.293: Supervision of with other poor reproductive or obstetric history O36.5130: Maternal care for known or suspected placental insufficiency Procedures 14602: US Uterus Limited 08598: Biophysical Profile W NST 64905: Umbilical Doppler [employer] PACS Anatomical Region Laterality Modality Other 09/28/2024 7:49 AM CDT Crystal MCFADDEN-STICK FEEDER [facility] ORDERABLES Edited Result - Final from Last 3 Months Insurance [facility] [place] [id number] [facility] Care Teams Human Resources Recruiter Relationship Specialty Start Date End Date Unknown, Provider PCP - General 06/21/24
--- OUTSIDE RECORDS SUMMARY | 2024-11-27 13:18 | XMS_ITS | Clinical Summary ---
Author Organization [facility] Interactive Project Address [address] [place] [address] Care Team Providers Care President Celebrity Acquistion Name Role Phone No, Physician Primary Care Provider [phone] Allergies No known active allergies Medications No known medications Active Problems Problem Noted Date Diagnosed Date Supervision of high risk in [facility] 09/25/2024 Overview (10/02/2024): [] OB consult only, [x] Co-management vs. [] Full M Care; [] Red Team [x] Blue Team Referring Provider: Maria A Coates [id number] [] or Medicare Insurance [x] Dating Criteria: LMP:03/01/24 SONY:12/06/24 [x] Labs: Rh [O-], Ab [NEG], Rubella [IMM], HIV [NEG], HepBSAg [NEG], HepBSAb [], HepBCAb [], VDRL [NEG], Hep C [NEG], Varicella [POS], GC/CT [NEG] [x] Aneuploidy Screening: NIPT:[low risk] [] Carrier Screening: [] Hgb electrophoresis: [x] CBC/Hgb: 12.5/36.6/262 [x] Early 1hr GTT (if indicated): A1c:5.0 [] UCx: [] Pap: request sent 09/25 [] LD ASA (if indicated): [] EPDS [ ]; PNBHS referral (if indicated): 2nd Trimester [x] Anatomy ultrasound: 09/29/24 WNL [] CBC/1hr gtt at 24-28wks: [] Rhogam at 28 wks (if Rh neg): O- 3rd Trimester [] CBC/HIV/RPR/T&S: [] GBS: [] GC/CT (if indicated): [] testing: Not currently indicated Counseling [] MOD: Anticipate at term [] Place of delivery: with primary OB [] Epidural: [] Accepts Blood Products: [] Stop ASA: [] MOC: [] Method of feeding: [] Fashion Consultant Sales (specifically which provider): [] PP Depression Discussed: [] PP visits scheduled: Vaccines [] Flu Shot (Oct-Jan): [] COVID vaccine: [] Tdap (27-36wks): [] RSV vaccine (32-36wks): [] PP HPV vaccine counseling (<=26 yo): Assessment & Plan (10/02/2024 7:56 PM CDT): [] OB consult only, [x] Co-management vs. [] Full MFM Care; [] Red Team [x] Blue Team Referring Provider: Maria A Coates [id number] [] [employer] or Medicare Insurance [x] Dating Criteria: LMP:03/01/24 SONY:12/06/24 [x] Labs: Rh [O-], Ab [NEG], Rubella [IMM], HIV [NEG], HepBSAg [NEG], HepBSAb [], HepBCAb [], VDRL [NEG], Hep C [NEG], Varicella [POS], GC/CT [NEG] [x] Aneuploidy Screening: NIPT:[low risk] [] Carrier Screening: [] Hgb electrophoresis: [x] CBC/Hgb: 12.5/36.6/262 [x] Early 1hr GTT (if indicated): A1c:5.0 [] UCx: [] Pap: request sent 09/25 [] LD ASA (if indicated): [] EPDS [ ]; PNBHS referral (if indicated): 2nd Trimester [x] Anatomy ultrasound: 09/29/24 WNL [] CBC/1hr gtt at 24-28wks: [] Rhogam at 28 wks (if Rh neg): O- 3rd Trimester [] CBC/HIV/RPR/T&S: [] GBS: [] GC/CT (if indicated): [] testing: Not currently indicated Counseling [] MOD: Anticipate at term [] Place of delivery: with primary OB size consistent with d ates during in third trimester 09/25/2024 Overview (10/02/2024): 09/29/24: EFW 68th% Dating criteria reviewed, would use SONY 12/18/24 to correspond to 6w3d CRL dating criteria. Plan: [] Repeat growth in 4 weeks to trend Assessment & Plan (10/02/2024 7:57 PM CDT): 09/29/24: EFW 68th% Dating criteria reviewed, would use SONY 12/18/24 to correspond to 6w3d CRL dating criteria. Plan: [] Repeat growth in 4 weeks to trend POTS (postural orthostatic tachycardia syndrome) 09/25/2024 Overview (10/02/2024): Counseling 09/29/2024: Reviewed with patient that postural orthostatic tachycardia syndrome (PoTS) is caused by cardiovascular autonomic dysfunction characterized by marked increase in heart rate of 30 beats per minute (bpm) or greater occurring within 10 min of head-up tilt or standing, or a heart rate while upright of >120 bpm, but without orthostatic hypotension. Postural orthostatic tachycardia syndrome (POTS) has a variable symptom course during and . A reported 2/3 of patients report symptomatic improvement in the 2nd and 3rd trimester. The disease does not have any increased adverse maternal or outcomes in the literature although some studies say there may be an increased risk of hyperemesis gravidarum. Oral hydration of >2L/day and salt intake of 3-5g/day is recommended. ALONA hose/compression stockings can also be used safely in . Medications used for POTS have some adverse effects related to including midodrine (increased SAB and reduced body weight but overall well tolerated), beta blockers such as propranolol (linked to FGR and uterine hypoperfusion), fludrocortisone (some reports of teratogenicity) but overall can be well tolerated in . Management is individualized and depends on maternal symptoms. Labor and delivery are typically well tolerated, however patients report a higher incidence of recurrence . Normal vaginal delivery can be achieved in women with PoTS. Peripheral vasodilatation and hypotension from epidurals may worsen PoTS, however are not contraindicated and consultation with obstetric anesthesia is advised in the third trimester. The Valsalva maneuver during the second stage can potentially worsen hemodynamic instability. It may be advisable to limit second stage with instrumental delivery, but this risk should be balanced against the risk of perineal injury. section should be reserved for standard obstetric indications. After delivery, there is usually progressive improvement of symptoms to the pre- state and there are no documented long-term implications of the effects of on PoTS. Symptoms may improve in the early period. Plan: - Monitor symptoms Assessment & Plan (10/02/2024 7:58 PM CDT): Counseling 09/29/2024: Reviewed with patient that postural orthostatic tachycardia syndrome (PoTS) is caused by cardiovascular autonomic dysfunction characterized by marked increase in heart rate of 30 beats per minute (bpm) or greater occurring within 10 min of head-up tilt or standing, or a heart rate while upright of >120 bpm, but without orthostatic hypotension. Postural orthostatic tachycardia syndrome (POTS) has a variable symptom course during and . A reported 2/3 of patients report symptomatic improvement in the 2nd and 3rd trimester. The disease does not have any increased adverse maternal or outcomes in the literature although some studies say there may be an increased risk of hyperemesis gravidarum. Oral hydration of >2L/day and salt intake of 3-5g/day is recommended. ALONA hose/compression stockings can also be used safely in . Medications used for POTS have some adverse effects related to including midodrine (increased SAB and reduced body weight but overall well tolerated), beta blockers such as propranolol (linked to FGR and uterine hypoperfusion), fludrocortisone (some reports of teratogenicity) but overall can be well tolerated in . Management is individualized and depends on maternal symptoms. Labor and delivery are typically well tolerated, however patients report a higher incidence of recurrence . Normal vaginal delivery can be achieved in women with PoTS. Peripheral vasodilatation and hypotension from epidurals may worsen PoTS, however are not contraindicated and consultation with obstetric anesthesia is advised in the third trimester. The Valsalva maneuver during the second stage can potentially worsen hemodynamic instability. It may be advisable to limit second stage with instrumental delivery, but this risk should be balanced against the risk of perineal injury. section should be reserved for standard obstetric indications. After delivery, there is usually progressive improvement of symptoms to the pre- state and there are no documented long-term implications of the effects of on PoTS. Symptoms may improve in the early period. Plan: - Monitor symptoms Fatigue 04/08/2010 Cephalalgia 04/08/2010 Malaise 04/08/2010 Estimated Date of Delivery Comme nts Yes 12/18/2024 Based on Ultraso und, CRL report scanned under Media, p4 Encounters Date Type Department Care Team Description 09/29/2024 10:30 AM CDT Telemedicine [facility] Medicine Physicians [facility] Obstetrics and Gynecology [address] [place] [address] Supervision of high risk in third trimester (Primary Dx); Supervision of high-risk , unspecified trimester; size consistent with dates during in third trimester; POTS (postural orthostatic tachycardia syndrome) 09/29/2024 7:20 AM CDT - 09/29/2024 11:59 PM CDT Hospital Encounter [facility] - Ultrasound [address], 7th [address], [address] [facility] [place] [address] Supervision of high-risk , unspecified trimester Discharge Disposition: Discharge to home or self care 09/25/2024 Telephone [facility] Medicine Maternal- Medicine [address] [facility] 7th [address] [place] [phone] Patricia Goodman, [facility] Scheduling US/OBC 09/22/2024 Telephone [facility] Medicine Obstetrics and Gynecology [address] [place] [id number] Dorothy Garcia from Last 3 Months Surgical History Surgery Date Site/Laterality Comments LAPAROSCOPIC CHOLECYSTECTOMY Medical History Medical History Date Comments Chronic fatigue syndrome POTS (postural orthostatic tachycardia syndrome) Social History Tobacco Use Types Packs/Day Years Used Date Smoking Tobacco: Never Tobacco Cessation:Counseling Given: Not Answered Estimated Date of Delivery Comme nts Yes 12/18/2024 Based on Ultraso und, CRL report scanned under Media, p4 Sex and Gender Information Value Date Recorded Sex Assigned at Not on file Legal Sex Female 2:38 PM CDT Gender Identity Not on file Sexual Orientation Not on file Obstetrics History Para Term AB IAB SAB Ectopic Multiple Livin g Live Births 2 1 1 1 1 Date Outcome GA Total Labor Labor/2nd/3rd Weight Sex Type Anes PTL Fawn A1 A5 Name Clin 2023 Term 40w 0d 3.09 kg (6 lb 13 oz) F Vag-S pont N Living Complications:None Current Summary Episode Dates Number of Fetuses Estimated Date of Delivery 09/25/2024 - Present (11/27/2024) 12/18/2024 (set by Yossi Pan MD on 09/29/2024 based on Ultrasound on 04/27/2024) Dating Summary Based On SONY GA Diff Last Menstrual Period on 03/01/2024 12/06/2024 +1w5d Ultrasound on 04/27/2024 12/18/2024 Working GA:6w3d Comment:CRL report scanned u nder Media, p45/78 Vitals Date GA Fund Present FHR Mvmt BP Weight Edema Alb Glu Ket Dil/ Eff/Sta 28w4d Inpatient data not displayed here. See encounter summary. Notes Progress Notes - Telemedicin e - 09/29/2024 - GA:28w4d 09/29/2024 - 28w4d - Asiya Pan MD Maternal Medicine Consult Note This was a telemedicine visit with Valencia, her partner and daughter which took place via Real-time video connection (N42, Towergate or similar).During the visit, I was located in the office and the patient was located in our [facility] in the [facility]. My visit with the patient started at 10:54 and ended at 11:08. Total encounter time was 29 minutes, which includes time spent today on pre charting, the patient encounter, and post charting. I managed 2+ chronic conditions and reviewed care notes/labs from primary OB. The patient has been informed that the visit may not be secure and acknowledged the information. The option of participating in a telephone or video visit was explained to them. After being given an opportunity to ask questions about and discuss this type of visit, they consented to proceeding with the telephone/video visit and understand that this service replaces an office visit. 09/29/2024 Reason for Consult: concern for FGR Requesting Provider: Dr. Maria A Coates MD Dear Dr. Coates, We had the pleasure of seeing your patient Valencia Be in our office today. As you know, she is a 29 y.o. at 28w4d by 1st trimester Ultrasound here today for a consult regarding concern for growth restriction. Her is also complicated by POTS. Today she is doing well, she reports no complaints. There has been discrepancy about her SONY. Reports she was originally redated by her 6w3d CRL as this was discrepant from her LMP. Then her LMP was used again when baby was measuring like her LMP dating. Was called FGR when baby was <10th% for this dating. On review of dating criteria, CRL is 1w5d different than LMP dating, would date by 6w3d CRL for SONY 12/18/24. POTS since freshman year in high school 2009. Followed at [place] early on. Hasn't been on medications in many years, controlled with lifestyle changes. 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 Has also been diagnosed with chronic fatigue syndrome, not currently taking meds. OB History Para Term AB Living 2 1 1 1 SAB IAB Ectopic Multiple Live Births 1 # Outcome Date GA Lbr Ulysses/2nd Weight Sex Type Anes PTL Lv 2 Current 1 Term 08/02/23 40w0d 3.09 kg (6 lb 13 oz) F Vag-Spont N FAWN Past Gynecologic History: Prior STIs: denies History of abnormal pap: denies Last pap smear: did not receive in records. Patient's last menstrual period was 03/01/2024. Denies history of uterine anomalies or fibroids. Denies history of blood transfusion. Past Medical History: Diagnosis Date Chronic fatigue syndrome POTS (postural orthostatic tachycardia syndrome) Past Surgical History: Procedure Laterality Date LAPAROSCOPIC CHOLECYSTECTOMY Medications: PNV No Known Allergies Social History Tobacco Use Smoking status: Not on file Smokeless tobacco: Not on file Substance and Sexual Activity Drug use: Not on file Sexual activity: Not on file Alcohol Use: Not At Risk (07/20/2023) Received from [facility] Alcohol Use Frequency of Alcohol Consumption: Not on file Average Number of Drinks: Not on file Frequency of Binge Drinking: Not on file Alcohol Use Status: Never Average alcohol consumption: Not on file Lives with partner and daughter Smoke cigarettes, cigars, E-cigs: No Beer, wine, or liquor: No Street drugs/marijuana: No Family History: No family history on file. Maternal aunt with FVL, mother testing and negative. Both have 1st cousins with genetic conditions and disabilities but no formal diagnosis that they know of. Neural tube defects: No Down syndrome or other chromosomal anomalies: No Hemophilia, sickle cell, bleeding/clotting disorder: No Muscular dystrophy: No Cystic fibrosis: No Intellectual disability or Fragile X: No Avni disease: No Other defects or genetic disorders: No Dating: Estimated Date of Delivery: 12/18/24 by 6w CRL Review of Systems Review of systems per HPI and otherwise all systems are negative Physical Exam Vitals LMP 03/01/2024 General: Healthy, alert, active, cooperative, and in no distress The rest of the exam was deferred due to the virtual telehealth nature of this visit. Ultrasound 09/29/2024: Normal biometry and amniotic fluid. Detailed anatomic assessment as above which appeared grossly normal within the limitations of ultrasound, although abdominal cord insertion was not well seen today. Normal adnexa. Please see the separate report for full details Assessment: Ms. Valencia Be is a 29 y.o. at 28w4d by 1st trimester Ultrasound here today for a consult regarding concern for growth restriction - fetus is AGA today with SONY 12/18/24 based on 6w3d CRL. Her is also complicated by POTS. Recommendations: Supervision of high risk in third trimester [] OB consult only, [x] Co-management vs. [] Full M Care; [] Red Team [x] Blue Team Referring Provider: Maria A Coates [id number] [] or Medicare Insurance [x] Dating Criteria: LMP:03/01/24 SONY:12/06/24 [x] Labs: Rh [O-], Ab [NEG], Rubella [IMM], HIV [NEG], HepBSAg [NEG], HepBSAb [], HepBCAb [], VDRL [NEG], Hep C [NEG], Varicella [POS], GC/CT [NEG] [x] Aneuploidy Screening: NIPT:[low risk] [] Carrier Screening: [] Hgb electrophoresis: [x] CBC/Hgb: 12.5/36.6/262 [x] Early 1hr GTT (if indicated): A1c:5.0 [] UCx: [] Pap: request sent 09/25 [] LD ASA (if indicated): [] EPDS [ ]; PNBHS referral (if indicated): 2nd Trimester [x] Anatomy ultrasound: 09/29/24 WNL [] CBC/1hr gtt at 24-28wks: [] Rhogam at 28 wks (if Rh neg): O- 3rd Trimester [] CBC/HIV/RPR/T&S: [] GBS: [] GC/CT (if indicated): [] testing: Not currently indicated Counseling [] MOD: Anticipate at term [] Place of delivery: with primary OB size consistent with dates during in third trimester 09/29/24: EFW 68th% Dating criteria reviewed, would use SONY 12/18/24 to correspond to 6w3d CRL dating criteria. Plan: [] Repeat growth in 4 weeks to trend POTS (postural orthostatic tachycardia syndrome) Counseling 09/29/2024: Reviewed with patient that postural orthostatic tachycardia syndrome (PoTS) is caused by cardiovascular autonomic dysfunction characterized by marked increase in heart rate of 30 beats per minute (bpm) or greater occurring within 10 min of head-up tilt or standing, or a heart rate while upright of >120 bpm, but without orthostatic hypotension. Postural orthostatic tachycardia syndrome (POTS) has a variable symptom course during and . A reported 2/3 of patients report symptomatic improvement in the 2nd and 3rd trimester. The disease does not have any increased adverse maternal or outcomes in the literature although some studies say there may be an increased risk of hyperemesis gravidarum. Oral hydration of >2L/day and salt intake of 3-5g/day is recommended. ALONA hose/compression stockings can also be used safely in . Medications used for POTS have some adverse effects related to including midodrine (increased SAB and reduced body weight but overall well tolerated), beta blockers such as propranolol (linked to FGR and uterine hypoperfusion), fludrocortisone (some reports of teratogenicity) but overall can be well tolerated in . Management is individualized and depends on maternal symptoms. Labor and delivery are typically well tolerated, however patients report a higher incidence of recurrence . Normal vaginal delivery can be achieved in women with PoTS. Peripheral vasodilatation and hypotension from epidurals may worsen PoTS, however are not contraindicated and consultation with obstetric anesthesia is advised in the third trimester. The Valsalva maneuver during the second stage can potentially worsen hemodynamic instability. It may be advisable to limit second stage with instrumental delivery, but this risk should be balanced against the risk of perineal injury. section should be reserved for standard obstetric indications. After delivery, there is usually progressive improvement of symptoms to the pre- state and there are no documented long-term implications of the effects of on PoTS. Symptoms may improve in the early period. Plan: - Monitor symptoms Thank you for the opportunity to be involved in the care of your patient. Should you have any further questions or concerns, please do not hesitate to call us. Summary of visit: - Would repeat growth in 4 weeks to trend, can be performed with primary OB - OB/ER warnings reviewed - No need for further MFM clinic follow up unless new questions/concerns/complications arise Asiya Pan MD [facility] Division of Maternal- Medicine Progress Notes - Abstract - 09/25/2024 - GA:28w0d 09/25/2024 - 28w0d - Flo Booker RMA Ob records in media Plan of Treatment Health Maintenance Due Date Last Done Comments Cervical Cancer Screening 1995 Depression Screening 1995 Hepatitis C Screening 1995 Varicella Vaccines (1 of 2 - 13+ 2-dose series) 2008 Hepatitis B Screening 2013 Regular Well Visit/Exam 18-64 2013 HPV Vaccines (1 - 3-dose SCD M series) 2022 Influenza Vaccine (#1) 2024 11/06/2022 DTaP/Tdap/Td Vaccine (2 - Td or Tdap) 06/01/2033 06/02/2023 Pneumococcal vaccine <65 Aged Out No longer eligible based on patient's age to complete this topic Procedures Procedure Name Priority Date/Time Associated Diagnosis Comments US OB DETAIL ANATOMY SINGLE OR FIRST GESTATION Schedule Routine, Read Routine (OP Routine) 09/29/2024 7:20 AM CDT Supervision of high-risk , unspecified trimester from Last 3 Months Results * US Ob Detail Anatomy Single Or First Gestation (09/29/2024 7:20 AM CDT) Fetus# Fetus1 VIEWPOINT Estimated Weight 1,389 g&grams VIEWPOINT Placenta Details posterior, Previa-no, no placental masses VIEWPOINT Presentation Vertex VIEWPOINT Anatomical Region Laterality Modality Body N/A Ultrasound 09/29/2024 7:24 AM CDT Impressions 09/29/2024 9:02 AM CDT Normal biometry and amniotic fluid. Detailed anatomic assessment as above which appeared grossly normal within the limitations of ultrasound, although abdominal cord insertion was not well seen today. Normal adnexa. MFM consult later this morning. Narrative Procedure Note Karen Reddy MD - 09/29/2024 IMPRESSION: Normal biometry and amniotic fluid. Detailed anatomic assessment as abovewhich appeared grossly normal within the limitations of ultrasound,although abdominal cord insertion was not well seen today. Normal adnexa.MFM consult later this morning. us Maria A Coates MD IMG OB US PROCEDURES Final Resu lt from Last 3 Months Insurance [facility] ACCESS CHOICE ANTHEM ACCESS CHOICE Care Teams President Celebrity Acquistion Relationship Specialty Start Date End Date No, Physician PCP - General 09/21/24
--- OUTSIDE RECORDS SUMMARY | 2024-11-27 13:18 | XMS_ITS | Clinical Summary ---
Author Organization [facility] Address [address] [place] [address], [place] [address] Care Team Providers Care Blow Down Helper Name Role Phone Unavailable Primary Care Provider Unavailabl e Allergies Active Allergy Reactions Criticality Noted Date Comments Penicillins Nausea And Vomiting, Other/Unknown (See Comments) 11/07/2020 Medications No known medications Active Problems Problem Noted Date Diagnosed Date Migraines 03/10/2024 POTS (postural orthostatic tachycardia syndrome) 03/10/2024 Prolonged latent phase of labor 08/02/2023 Encounter for suspected kathy ature rupture of amniotic membranes, with rupture of membranes not found 07/26/2023 Temporomandibular joint disorder 09/29/2022 Xerostomia 09/29/2022 Postural orthostatic tachycardia syndrome 2021 Chronic sphenoidal sinusitis 11/06/2021 Resolved Problems Problem Noted Date Diagnosed Date Resolved Date Normal labor 08/02/2023 08/02/2023 Headache 12/02/2021 10/23/2023 Immunizations Immunization Administration Dates Next Due Covid-19 21 Day Interval Pfizer 04/12/2020,03/08 Influenza, Seasonal Vaccine 11/06/2022 Rho (D) Immune Globulin IM 05/14/2023 Tdap 06/02/2023 Family History Medical History Relation Name Comments No Known Problems Brother No Known Problems Father Other (See Comments) Maternal Aunt Gabriel Jaz[employer] r Rosa Arias Alzheimer's Disease Maternal Grandfather Migraines Mother Avis Fernando Thyroid Disease Mother Avis Fernando hypothyroid No Known Problems Paternal Grandfather Other (See Comments) Paternal Grandmother UTI went septic Relation Name Status Comments Brother Alive Father Alive Maternal Aunt Gabriel Wu Alive Maternal Grandfather Maternal Grandmother Alive Mother Avis Fenrando Alive Paternal Grandfather Paternal Grandmother Social History Tobacco Use Types Packs/Day Years Used Date Smoking Tobacco: Never Smokeless Tobacco: Never Tobacco Cessation:Counseling Given: Yes Alcohol Use Standard Drinks/Week Comments Never 0 (1 standard drink = 0.6 oz pur e alcohol) [facility] Utilities Answer Date Recorded In the past 12 months has th e Selerity, gas, oil, or water [facility] threatened to shut off services in your home? No 08/02/2023 Humiliation, Afraid, Rape, and Kick questionnair e Answer Date Recorded Within the last year, have y ou been afraid of your partner or ex-partner? No 08/02/2023 Within the last year, have y ou been humiliated or emotionally abused in other ways by your partner or ex-partner? No Within the last year, have y ou been kicked, hit, slapped, or otherwise physically hurt by your partner or ex-partner? No 08/02/2023 Within the last year, have y ou been raped or forced to have any kind of sexual activity by your partner or ex-partner? No 08/02/2023 Hunger Vital Sign Answer Date Recorded Within the past 12 months, y ou worried that your food would run out before you got the money to buy more. Never true 08/02/19 24 Within the past 12 months, t he food you bought just didn't last and you didn't have money to get more. Never true 08/02/2023 PRAPARE - Transportation Answer Date Re corded In the past 12 months, has l ack of transportation kept you from medical appointments or from getting medications? No 07/23 In the past 12 months, has l ack of transportation kept you from meetings, work, or from getting things needed for daily living? No 08/02/2023 Housing Stability Vital Sign Answer Wayne e Recorded In the last 12 months, was t here a time when you were not able to pay the mortgage or rent on time? No 08/02/2023 In the last 12 months, how many places have you lived? 2 08/02/2023 In the last 12 months, was t here a time when you did not have a steady place to sleep or slept in a residential (including now)? 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 Pulse 109 10/23/2023 11:34 AM CDT Temperature 36.8 C (98.2 F) 10/23/2023 11:34 AM CDT Respiratory Rate 16 10/23/2023 11:34 AM CDT Oxygen Saturation 100% 10/23/2023 11:34 AM CDT Inhaled Oxygen Concentration - - Weight 67.3 kg (148 lb 6.4 oz) 03/10/2024 7:44 A M LAST MODEL DEPARTMENT SUPERVISOR Height 165.1 cm (5' 5) 03/10/2024 7:44 AM LAST MODEL DEPARTMENT SUPERVISOR Body Mass Index 24.7 03/10/2024 7:44 AM LAST MODEL DEPARTMENT SUPERVISOR Plan of Treatment Health Maintenance Due Date Last Done Comments MMR VACCINES (1 of 1 - Standard series) 1996 Varicella Vaccine (1 of 2 - 13+ 2-dose series) 2008 HPV VACCINES (1 - 3-dose series) 2010 HEPATITIS B VACCINES (1 of 3 - 19+ 3-dose series) 2014 DEPRESSION SCREENING 09/14/2024 09/15/2023, 05/01/2021 YEARLY WELLNESS EXAM 09/14/2024 09/15/2023, 10/20/2021 Influenza Vaccine 09/22/2024 11/06/2022 COVID-19 Immunization ( season) 2024 04/12/2020, 03/08/2020 CERVICAL CANCER SCREENING 09/14/20262023, 10/20/2021 ADULT TETANUS 06/01/2033 06/02/2023 Zoster Vaccine (Recombinant Vaccine) (1 of 2) 2045 Hepatitis C Screening ages 1 8 to 79 once Completed 12/22/2022 HEPATITIS A VACCINES Aged Out No long er eligible based on patient's age to complete this topic HIB VACCINES Aged Out No longer eligi ble based on patient's age to complete this topic IPV VACCINES Aged Out No longer eligi ble based on patient's age to complete this topic MENINGOCOCCAL VACCINE Aged Out No vahid bertin eligible based on patient's age to complete this topic Meningococcal B Vaccine Aged Out No l onger eligible based on patient's age to complete this topic Pneumococcal Vaccine: Peds t o 50 & At-Risk Patients Aged Out No longer eligible based on patient's age to complete this topic ROTAVIRUS VACCINES Aged Out No longer eligible based on patient's age to complete this topic Procedures Procedure Name Priority Date/Time Associated Diagnosis Comments CYTOLOGY, PAP (THIN PREP) Routine 09/15/2023 12:00 AM CDT HEPATITIS C ANTIBODY Routine 12/22/2022 4:00 PM CDT 8 weeks gestation of from Last 3 Months or Most Recently Relevant to Health Maintenance Results * CYTOLOGY, PAP (THIN PREP) (09/15/2023 12:00 AM CDT) 09/15/2023 09/16/2023 Narrative TAMTRON - 09/21/2023 1:07 PM CDT CASE: [id number] PATIENT: VALENCIA BE SPECIMEN SOURCE: Cervical CLINICAL INFORMATION: Routine Screening; HPV typing requested SPECIMEN: A. THIN PREP PAP Imaging Directed Cytology PRIOR PAP SMEAR DIAGNOSES: DATE PATHOLOGY# DIAGNOSIS PHYSICIAN 10/22/21 [id number] SONYA CARTER NP GENERAL CATEGORIZATION: Negative for intraepithelial lesion or malignancy. SPECIMEN ADEQUACY: Satisfactory for evaluation. Interpretation performed by NICOLAS TIPTON(ASCP). Electronically signed 09/17/2023 1:26:[address] [place] [id number] HPV RESULTS: Negative for High Risk HPV by TMA Nucleic acid amplification detects the E6/E7 viral messenger RNA of the high risk HPV types 16, 18, 31, 33, 35, 39, 45, 51, 52, 56, 58, 59, 66 and 68 associated with cervical cancer and its precursor lesions. Cross-reactivity with low-risk HPV genotypes 26, 67, 70 and 82 may occur. Sensitivity may be affected by specimen collection, stage of infection and the presence of interfering substances. HPV results should be interpreted in conjunction with laboratory and clinical data. This test is intended for medical purposes only. HPV testing should not be used for screening of atypical squamous cells of undetermined significance (ASCUS) in women under age 21. HPV Addendum #1 performed by TICO TIPTON(ASC). Electronically signed 09/21/2023 1:07:[address] [place] [id number] Zora Umaña NP PATHOLOGY/CYTOLOGY ORDERABLES E dited Result - Final Performing Organization Address [facility]/ZIP Co de Phone Number BETH * HEPATITIS C ANTIBODY (12/22/2022 4:00 PM CDT) Hepatitis C IgG Antibody NONREACTIVE (NEG) NONREACTIVE (NEG) [facility] Hep C IgG Comment SEE NOTES [facility] Comment: THIS ASSAY HAS NOT BEEN FDA CLEARED OR APPROVED FOR THE SCREENING OF BLOOD OR PLASMA DONORS. TEST PERFORMED USING [employer] Blood 12/22/2022 4:00 PM CDT 12/22/2022 4:07 PM CDT us Alyssa Sanches MD IMMUNOLOGY ORDERABLES Final R esult Performing Organization Address [facility]/ZIP Co de Phone Number [facility] [address] [place] [address] from Last 3 Months or Most Recently Relevant to Health Maintenance Insurance ANTHEM/BCBS ANTHEM/BCBS ANTHEM/BCBS ANTHEM/BCBS ANTHEM/BCBS ANTHEM/BCBS Advance Directives * Full Code (Latest Code Status on File) Date Activated Date Inactivated Comments 08/02/2023 2:28 AM
--- OUTSIDE RECORDS SUMMARY | 2025-01-12 10:09 | XMS_ITS | Encounter Summary ---
Author Organization [facility] Address [address] [place] [address] Care Team Providers Care Deicer Repairer Pneumatic Name Role Phone Unknown, Provider Primary Care Provider Unavaila ble Reason for Visit * Reason Onset Date Comments Returned Call 11/07/2024 Encounter Details Date Type Department Care Team (Late st Contact Info) Description 11/07/2024 Telephone [facility] - NUCLEAR LOGGING ENGINEER [address] [place] [address] Yamel Wilson APRN-HOUSE OFFICER [address] [place] [address] Returned Call Social History Tobacco [...] for testing. List of medications sent via [employer] that are ok to take during . * Telephone Encounter - Nancy Lizama - 11/07/2024 10:55 AM CDT Pt returning call to office. CB: [phone] documented in this encounter Plan of Treatment Not on file documented as of this encounter Visit Diagnoses Not on filedocumented in this encounter Care Teams Deicer Repairer Pneumatic Relationship Specialty Start Date End Date Unknown, Provider PCP - General 06/21/24 documented as of this encounter
--- OUTSIDE RECORDS SUMMARY | 2025-01-12 10:09 | XMS_ITS | Data Portability ---
Author Organization [employer] , [facility] [place] Address [address] [place] [address] Assessment No assessment recorded. Plan of Treatment Reminders Order Date Submit Date Provider Last Modified By Organization Details Last Modified Time Details Appointments None recorded. Lab urinalysis, dipstick 2024 025 [facility] [place], [address] [place] [address], [id number], 5 18:27:46 culture, urine 2024 025 [email or web address] [facility], [address] [facility], [place], [address], 5 19:36:51 glucose tolerance test, post-50G, 1-hour 2024 025 [facility], [address] [place], [address], 5 11:15:00 unlisted lab - -i nduced hypertensio n panel (phi) ([facility]) 2024 025 [facility], [address] [place], [address], 5 11:41:01 protein:cre atinine ratio, urine 2024 025 [facility], [address] [place], [address], 5 11:31:06 CBC w/ auto diff 2024 025 [facility], [address] [place], [address], 5 11:31:08 Referral maternal & medicine referral 2024 025 [facility], [address] [facility], [place], [address], 10:46:53 Procedures None recorded. Surgeries None recorded. Imaging None recorded. Medication Orders None recorded. Patient TargetsNo targets recorded. Patient Instructions Encounter Date Encounter Id Patient Instructions Last Modified By Organization Details Last Modified Time 09/21/2024 [id number] learning about preventing Rh disease Not available 09/21/2024 12:23:04 learning about screening for gestational diabetes Not available 09/21/2024 12:23:04 Reason for Referral Maternal & Medicine Re ferral for Poor growth affecting management Referring Physician: Maria A Coates, CONSTRUCTION PROJECT ENGINEER, Encounter Date: 09/21/2024 Results Created Date Observation Date Name Description Value Unit Range Abnormal Flag Note LastModifiedBy Organization Detail LastModifiedTime 10/28/1910/27/2024 VAGIN ITIS PLUS STD PANEL vaginitis plus STD panel SPECIM EN NOT REC'D TO DON Not Available [facility] [address] [place], [address], 10/27/2024 13:38:44 06/23/1906/26/2024 MATER NAL SERUM AFP interpretati on: Scree n negat martín for open NTD. Not Available [facility] [address], [place], [address], 06/26/2024 16:41:47 06/23/19 25 06/26/2024 MATER NAL SERUM AFP risk for ontd NOT CALCUL ATED Not Available [facility] [address] [place], [address], 06/26/2024 16:41:47 06/23/19 25 06/26/2024 MATER NAL SERUM AFP AFP, serum 15.3 NG/mL Not Available [facility] [address] [place] [address], [address], 06/26/2024 16:41:47 06/23/19 25 06/26/2024 MATER NAL SERUM AFP AFP MOM 0.45 Not Available [facility] [address], [address], 06/26/2024 16:41:47 06/23/19 25 06/26/2024 MATER NAL SERUM AFP comments: You have indic ated that this is a repea t speci men. While repea ting an eleva janette resul t is appro priat e, an accur ate neura l tube defec t risk has not been calcu lated for this repea t speci men. This patie nt's SONY (sukhdeep mated date of floyd garcia) was used to calcu late the gesta jennifer l age. The AFP test resul t indic ates that this patie nt is scree n negat martín for open NTD. It shoul d be noted that ulisses l test resul ts can never guara ntee the of a ulisses l baby and that 2-3% of [facility] rns have some type of physi melvin or menta l defec t, many of which are undet ectab le throu gh any known prena isa diagn ostic techn ique. Not Available [facility] [address], [address], 06/26/2024 16:41:47 06/23/19 25 06/26/2024 MATER NAL SERUM AFP comment This is a scree stephon test, not a diagn ostic test. This risk asses sment repor t is based in part on demog raphi c data provi ded by the order ing physi jeffery. Bryan e notif y the labor atory promp tly if any data are incor rect. For ignacio tance with recal culat ions, bryan e call your local [facility] . For ignacio tance with inter preta tion of these resul ts, pleas e conta ct your Local [facility] dian ic couns elor or call [phone] INFO( [phone]). Inter preti ve Cutof fs Scree n Posit martín for Open NTD: > or = 2.50 adjus janette MOM > or = 1.90 adjus janette MOM for insul in-de pende nt diabe tics > or = 4.00 adjus janette MOM for twins > or = 3.50 adjus janette MOM for twins insul in-de pende nt diabe tics > or = 4.50 adjus janette MOM for tripl ets For addit ional infor bryan cunningham e refer to http: //[facility] jaya schmidtque stdia gnost ics.c om/fa q/FAQ 74v1 (This link is being provi ded for infor rohini garcia/ educa jennifer l purpo ses only. ) Not Available [employer] [address] [place], [address], 06/26/2024 16:41:47 06/23/19 25 06/26/2024 MATER NAL SERUM AFP calc'd gestational age 16.1 weeks Not Available [employer] [address], [address], 06/26/2024 16:41:47 06/23/19 25 06/26/2024 MATER NAL SERUM AFP maternal weight 150 lbs Not Available [employer] [address], [address], 06/26/2024 16:41:47 06/23/19 25 06/26/2024 MATER NAL SERUM AFP est'd date of delivery 2024 Not Available [employer] [address], [address], 06/26/2024 16:41:47 06/23/19 25 06/26/2024 MATER NAL SERUM AFP sony determined by LMP Not Available [employer] [address], [address], 06/26/2024 16:41:47 06/23/19 25 06/26/2024 MATER NAL SERUM AFP mother's ethnic origin CAUCAS LESLIE Not Available [address], [address], 06/26/2024 16:41:47 06/23/19 25 06/26/2024 MATER NAL SERUM AFP number of fetuses 1 Not Available [address], [address], 06/26/2024 16:41:47 06/23/19 25 06/26/2024 MATER NAL SERUM AFP insulin depend diabetic NO Not Available [address], [address], 06/26/2024 16:41:47 06/23/19 25 06/26/2024 MATER NAL SERUM AFP repeat specimen YES Not Available [address], [address], 06/26/2024 16:41:47 06/23/19 25 06/26/2024 MATER NAL SERUM AFP Hx of neural tube defects NO Not Available [address], [address], 06/26/2024 16:41:47 06/23/19 25 06/26/2024 MATER NAL SERUM AFP prev down synd NO Not Available [address], [address], 06/26/2024 16:41:47 06/23/19 25 06/26/2024 MATER NAL SERUM AFP donor egg NO Not Available [address], [address], 06/26/2024 16:41:47 06/23/19 25 06/26/2024 MATER NAL SERUM AFP donor age: egg retrieval NOT GIVEN Not Available [address] [place], [address], 06/26/2024 16:41:47 09/22/19 25 09/22/2024 (50G) 1HR - GLUCO SE STEVE ANCE TEST, TOO Tubbs glucose (50g) 1 hour 133 mg/dL <135 normal Not Available [address], [address], 09/22/2024 11:15:00 09/22/19 25 09/22/2024 PROT/ CREAT - U RANDO M protein, urine 12.0 mg/dL <11.9 high Not Available [address], [address], 09/22/2024 11:31:06 09/22/19 25 09/22/2024 PROT/ CREAT - U RANDO M creatinine, urine 78 mg/dL 20 - 275 normal Not Available [address], [address], 09/22/2024 11:31:06 09/22/1909/22/2024 PROT/ CREAT - U RANDO M protein/crea tinine ratio, random urine 0.152 mg/mg _crea t 0.024 - 0.184 normal Not Available [address], [address], 09/22/2024 11:31:06 09/22/19 25 09/22/2024 CBC (INCL UDES DIFF/ PLT) WBC 9.4 thous and/u L 4.0 - 9.8 normal Not Available [address], [address], 09/22/2024 11:31:08 09/22/19 25 09/22/2024 CBC (INCL UDES DIFF/ PLT) RBC 3.5 siddharth on/uL 3.9 - 4.9 low Not Available [address], [address], 09/22/2024 11:31:08 09/22/19 25 09/22/2024 CBC (INCL UDES DIFF/ PLT) hemoglobin 11.6 g/dL 11.8 - 14.8 low Not Available [facility] [address] [place] [address], [address], 09/22/2024 11:31:08 09/22/19 25 09/22/2024 CBC (INCL UDES DIFF/ PLT) hematocrit 35.0 % 35.5 - 44.0 low Not Available [facility], [address], 09/22/2024 11:31:08 09/22/19 25 09/22/2024 CBC (INCL UDES DIFF/ PLT) MCV 99.7 fL 82.0 - 99.0 high Not Available [address], [address], 09/22/2024 11:31:08 09/22/19 25 09/22/2024 CBC (INCL UDES DIFF/ PLT) MCH 33.0 pg 27.2 - 32.6 high Not Available [address], [address], 09/22/2024 11:31:08 09/22/19 25 09/22/2024 CBC (INCL UDES DIFF/ PLT) MCHC 33.1 g/dL 31.5 - 35.5 normal Not Available [facility] [address], [address], 09/22/2024 11:31:08 09/22/19 25 09/22/2024 CBC (INCL UDES DIFF/ PLT) RDW-CV 13.1 % 11.5 - 14.5 normal Not Available [facility] [employer] [address] [place] [address], [address], 09/22/2024 11:31:08 09/22/19 25 09/22/2024 CBC (INCL UDES DIFF/ PLT) platelet 246 thous and/u L 140 - 350 normal Not Available [facility] [address] [place] [address], [address], 09/22/2024 11:31:08 09/22/19 25 09/22/2024 CBC (INCL UDES DIFF/ PLT) MPV 10.7 fL 9.3 - 12.4 normal Not Available [address], [address], 09/22/2024 11:31:08 09/22/19 25 09/22/2024 CBC (INCL UDES DIFF/ PLT) absolute neutrophil 6.85 thous and/u L 1.90 - 7.00 normal Not Available [address], [address], 09/22/2024 11:31:08 09/22/19 25 09/22/2024 CBC (INCL UDES DIFF/ PLT) absolute lymphocyte 1.71 thous and/u L 0.70 - 4.50 normal Not Available [address], [address], 09/22/2024 11:31:08 09/22/19 25 09/22/2024 CBC (INCL UDES DIFF/ PLT) absolute monocyte 0.59 thous and/u L 0.10 - 1.30 normal Not Available [address], [address], 09/22/2024 11:31:08 09/22/19 25 09/22/2024 CBC (INCL UDES DIFF/ PLT) absolute eosinophil 0.16 thous and/u L <0.70 normal Not Available [address], [address], 09/22/2024 11:31:08 09/22/19 25 09/22/2024 CBC (INCL UDES DIFF/ PLT) absolute basophil 0.05 thous and/u L <0.20 normal Not Available [address], [address], 09/22/2024 11:31:08 09/22/19 25 09/22/2024 CBC (INCL UDES DIFF/ PLT) absolute immature granulocyte 0.06 thous and/u L <0.03 high Not Available [address], [address], 09/22/2024 11:31:08 09/22/19 25 09/22/2024 PIH - PREGN DAVID- INDUC ED HYPER TENSI ON PANEL sodium 139 mmol/ L 136 - 145 normal Not Available [address], [address], 09/22/2024 11:41:01 09/22/19 25 09/22/2024 PIH - PREGN DAVDI- INDUC ED HYPER TENSI ON PANEL potassium 4.0 mmol/ L 3.5 - 5.1 normal Not Available [address], [address], 09/22/2024 11:41:01 09/22/19 25 09/22/2024 PIH - PREGN DAVID- INDUC ED HYPER TENSI ON PANEL chloride 104 mmol/ L 98 - 107 normal Not Available [address], [address], 09/22/2024 11:41:01 09/22/19 25 09/22/2024 PIH - PREGN DAVID- INDUC ED HYPER TENSI ON PANEL glucose 133 mg/dL 74 - 106 high Not Available [address], [address], 09/22/2024 11:41:01 09/22/19 25 09/22/2024 PIH - PREGN DAVID- INDUC ED HYPER TENSI ON PANEL carbon dioxide 25 mmol/ L 20 - 32 normal Not Available [address], [address], 09/22/2024 11:41:01 09/22/19 25 09/22/2024 PIH - PREGN DAVID- INDUC ED HYPER TENSI ON PANEL calcium 8.7 mg/dL 8.5 - 10.1 normal Not Available [address], [address], 09/22/2024 11:41:01 09/22/19 25 09/22/2024 PIH - PREGN DAVID- INDUC ED HYPER TENSI ON PANEL creatinine 0.68 mg/dL 0.60 - 1.00 normal Not Available [address], [address], 09/22/2024 11:41:01 09/22/19 25 09/22/2024 PIH - PREGN DAVID- INDUC ED HYPER TENSI ON PANEL eGFR 121 mL/mi n/1.7 3m2 >60 normal The eGFR is based on the CKD-E PI 2020 equat ion. To calcu late the new eGFR from a previ ous Creat inine or Cysta weston C resul t, go to https ://fanny hilario.o apoorva/pr janelless marieal s/kdo qi/gf r_cal culat or Not Available [address], [address], 09/22/2024 11:41:01 09/22/19 25 09/22/2024 PIH - PREGN DAVID- INDUC ED HYPER TENSI ON PANEL AST 20 U/L 15 - 37 normal Not Available [address], [address], 09/22/2024 11:41:01 09/22/19 25 09/22/2024 PIH - PREGN DAVID- INDUC ED HYPER TENSI ON PANEL ALT 22 U/L 14 - 59 normal Not Available [address], [address], 09/22/2024 11:41:01 09/22/19 25 09/22/2024 PIH - PREGN DAVID- INDUC ED HYPER TENSI ON PANEL alk phos 66 U/L 46 - 116 normal Not Available [address], [address], 09/22/2024 11:41:01 09/22/19 25 09/22/2024 PIH - PREGN DAVID- INDUC ED HYPER TENSI ON PANEL albumin 2.8 g/dL 3.4 - 5.0 low Not Available [address], [address], 09/22/2024 11:41:01 09/22/19 25 09/22/2024 PIH - PREGN DAVID- INDUC ED HYPER TENSI ON PANEL protein, total 6.1 g/dL 6.4 - 8.2 low Not Available [address], [address], 09/22/2024 11:41:01 09/22/19 25 09/22/2024 PIH - PREGN DAVID- INDUC ED HYPER TENSI ON PANEL bilirubin, total 0.1 mg/dL 0.2 - 1.0 low Not Available [address], [address], 09/22/2024 11:41:01 09/22/19 25 09/22/2024 PIH - PREGN DAVID- INDUC ED HYPER TENSI ON PANEL urea nitrogen (BUN) 8 mg/dL 7 - 18 normal Not Available [address], [address], 09/22/2024 11:41:01 09/22/19 25 09/22/2024 PIH - PREGN DAVID- INDUC ED HYPER TENSI ON PANEL uric acid 3.3 mg/dL 2.6 - 6.0 normal Not Available [address], [address], 09/22/2024 11:41:01 06/23/19 25 06/21/2024 US, obste tric, limit ed No observ ation record ed. [email or web address] [facility] [address], [place], [address], 06/27/2024 15:57:30 06/23/19 25 06/21/2024 US, obste tric No observ ation record ed. [facility] [place], [address], 06/22/2024 12:47:56 07/22/19 25 07/20/2024 US, obste tric No observ ation record ed. [email or web address] [facility] [address] [place] [address], [address], 07/28/2024 10:14:12 08/22/19 25 08/18/2024 US, obste tric, mater nal evalu ation + anato my No observ ation record ed. [email or web address] [facility] [place] [address] [place] [address], [address], 08/21/2024 13:34:59 09/23/19 25 09/21/2024 US, obste tric, bioph ysica l profi le No observ ation record ed. [facility] [address], [address], 09/22/2024 13:01:50 09/30/19 25 09/29/2024 US, obste tric No observ ation record ed. [facility] [address] [facility] [address], [place], [address], 10/02/2024 07:50:06 09/30/19 25 09/29/2024 US, obste tric No observ ation record ed. [facility] [address] [facility] [address], [place], [address], 10/02/2024 07:50:23 09/30/19 25 09/28/2024 US, obste tric, bioph ysica l profi le No observ ation record ed. [facility] [place] [address] [place] [address], [address], 10/02/2024 07:50:33 10/07/19 25 10/05/2024 US, obste tric, bioph ysica l profi le No observ ation record ed. [email or web address] [facility] [address] [place], [address], 10/09/2024 13:46:28 10/28/19 25 10/26/2024 US, obste tric, follo w-up No observ ation record ed. trina [facility] [address] [place], [address], 10/27/2024 16:10:16 Result Notes None recorded. Problems Name Problem SNOMED Code Status Onset Date Resolution Date Notes Provider Name and Address Organization Details Recorded Time 36483600 Active 2024 [address]ILO BARROW [address] [place] [address], [phone], [facility] 21:13:43 Body mass index 20-24 - normal 764010869 Active 2024 pre-preg BMI 24 LILO BARROW [address] [place] [address], [phone], [facility] 21:14:43 Postural orthostatic tachycardia syndrome 739088865 Active 2024 [facility] consult LILO BARROW [address] [place] [address], [phone], [employer] [facility] 13:39:16 Bacteriuria 16176424 Active 2024 GBS positive on urine culture at urgent care early in preg LILO BARROW [address] [place] [address], [phone], [employer] [facility] 13:30:36 Finding of pattern of 936730799 Active 2024 Short interval - last delivery 08/02/23 LILO BARROW [address] [place] [address], [phone], [facility] 12:08:24 Problem Notes None recorded. Procedures Surgical History Date Name Laterality Status Provider Name and Address Organization Details Recorded Time 09/15/19 24 Date of Last Pap Smear completed [facility] 04/27/2024 10:01:57 [facility] 04/27/2024 10:02:11 tonsillectomy completed Larissa Mercado [facility] 08/17/2024 16:27:30 Imaging Results None recorded. Procedure Notes None recorded. Medical Equipment None Reported. Allergies Allergen ID Allergen Name Allergen Category Reaction Reaction Severity Criticality Documentation Date Start Date Code Code System Note Provider Name and Address Organization Details Recorded Time 711205 Canis lupus familiari s extract environme nt Not available Not available Not available 04/27/2024 85144 4 RxNorm Lynne [facility] 10:01:47 163925 cat hair extract medicatio n Not available Not available Not available 09/21/20242024 78824 3 RxNorm Dog dande r unrec ogniz ed react ion (text : Unkno wn, code: [id number]) (from exter nal sour e) Quyen Mccollum [facility] 11:36:35 382251 Product containin g penicilli n (product) medicatio n Not available Not available Not available 09/21/20242020 89926 8001 SNOMED Quyen Mccollum [facility] 11:36:37 Medications Name Sig Start Date Stop Date Status Note LastModified by Organization Details LastModified Time metronidazo le 0.75 % (37.5 mg/5 gram) vaginal gel INSERT 1 APPLICATO RFUL VAGINALLY EVERY DAY FOR 5 DAYS 06/22 completed Not Available Not Available Not Available active Not Available Not Avai lable Not Available Vitals Date Recorded Body height Body mass index (BMI) Body weight Systolic And Diastolic Provider Name and Address Organization Details Last Updated DateTime 07/20/2024 165.1 cm 25.9 kg/m2 72636.69 g 110/60 mm[Hg] Delmi Celis [facility] 07/20/2024 11:43:21 Date Recorded Body height Body mass index (BMI) Body weight Body temperature Systolic And Diastolic Provider Name and Address Organization Details Last Updated DateTime 08/17/2024 165.1 cm 26.5 kg/m2 25690.1 9 g 97.9 [degF] 118/70 mm[Hg] Larissa Mercado [facility] [employer] [facility] 16:32:01 Date Recorded Body height Body mass index (BMI) Body weight Systolic And Diastolic Provider Name and Address Organization Details Last Updated DateTime 09/21/2024 165.1 cm 27.6 kg/m2 86783.9 g 118/80 mm[Hg] Quyen Mccollum [facility] [employer] [facility] 09/21/2024 11:36:27 Date Recorded Body height Body mass index (BMI) Body weight Systolic And Diastolic Provider Name and Address Organization Details Last Updated DateTime 10/12/2024 165.1 cm 28 kg/m2 50528.52 g 115/75 mm[Hg] Larissa [facility] [employer] [facility] 10/12/2024 11:34:11 Date Recorded Body height Body mass index (BMI) Body weight Systolic And Diastolic Provider Name and Address Organization Details Last Updated DateTime 10/16/2024 165.1 cm 28.1 kg/m2 75575.11 g 110/60 mm[Hg] Radha Frances [facility] [facility] 10/16/2024 14:51:58 Social History Question Answer Notes LastModified by Organizat ion Details LastModified Time Tobacco Smoking Status Never Smoker Lynne oshea, [facility] [employer] [facility] 04/27/2024 10:02:06 If You Are , What Was Your Level Of Alcohol Consumption Prior To ? None Information not available 04/27/2024 Are You Blind Or Do You Have Difficulty Seeing? No Information not available 04/27/2024 Are You Deaf Or Do You Have Serious Difficulty Hearing? No Information not available 04/27/2024 What Type Of Diet Are You Following? REGULAR Information not available 04/27/2024 What Is The Highest Grade Or Level Of School You Have Completed Or The Highest Degree You Have Received? [id number] [email or web address] Information not available 10/12/2024 How Many Children Do You Have? 1 Information not available 04/27/2024 Are There Any Occupational Health Risks Where You Work? No Information not available 04/27/2024 What Is Your Relationship Status? Information not available 04/27/2024 Are You Sexually Active? Yes Information not available 04/27/2024 Sex: Unknown Functional Status Question Answer Note LastModified by Organizat ion Details LastModified Time Do you use any illicit or recreational drugs? No Information not available 04/27/2024 What is your level of alcohol consumption? None Information not available 04/27/2024 Are you currently employed? Yes Information not available 04/27/2024 What is your exercise level? Occasional Information not available 04/27/2024 Mental Status None recorded. Family History Relationship Description Onset Age of this Age Resolved Age Notes LastModified by Organization Details LastModified Time Mother Hypothyroidi sm Not available 04/27 10:01:51 Father Hypertensive disorder Not available 04/27 10:01:51 Medical History Condition Response High Blood Pressure N Cytomegalovirus N Hyperthyroidism N MRSA N Blood Transfusion N Depression N Incontinence N Anxiety Disorder N Autoimmune disease N Arthritis N Infertility N Polycystic Ovarian Syndrome N Hematuria N Stroke N Varicosities N Seasonal allergies N Crohn's Disease N Alzheimer's/Dementia N COPD/Emphysema N History of Abnormal Pap N Fibromyalgia N Kidney Infection N Kidney Disease N Gallbladder disease N Von Willebrand disease N Eating Disorder N Diabetes Mellitus (non-insulin dependent ) N Ovarian Problems N Frequent Urinary Tract infections N Osteopenia N GERD (reflux) Y Diabetes (insulin dependent) N Asthma N Heart Attack N Endometrial Cancer N Hepatitis N Pulmonary Embolism N RPR N Chicken Pox Y Other Cancer N Colon Cancer N Herpes (HSV) N Breast Cancer N Lung Cancer N Hypothyroidism N Panic Attacks N Neurological Disorder N Deep Vein Thrombosis N Shingles N Tuberculosis/Positive PPD N Cervical Cancer N Chlamydia N Endometriosis N HPV/Genital Warts N IBS (Irritable Bowel Syndrome) N High Cholesterol N Liver Disease N Ulcer N HIV N Sickle Cell Disease/Trait N ADD/ADHD N Anemia N Multiple Sclerosis N Gonorrhea N Headaches/migraines N Ovarian Cancer N Seizures/Epilepsy N Breast Problems N Fibroids N Lupus N Rubella N Blood Clotting Disorder N Bipolar Disorder N Diabetes Mellitus (during ) N Ulcerative Colitis N Heart Disease N Osteoporosis N Gynecological History Statement/Question Response Flow Moderate Date of LMP 03/01/2024 HPV Vaccine N Duration of Flow (days) 5 Most Recent Mammogram Current Control Method Age at Menarche 13 If Post Menopausal, Age at Menopause Date of Last Colonoscopy Most Recent Bone Density Frequency of Cycle (Q days) 30-31 Date of Last Pap Smear 09/15/2023 Obstetrics History GPAL:G 2 P 1 0 0 1 Type Value Full Term 1 Living 1 Total 2 Past Encounters Encounter ID Performer Location Encounter Start Date Encounter Closed Date Diagnosis/Indication Diagnosis SNOMED-CT Code Diagnosis ICD10 Code Diagnosis IMO Codes Diagnosis Note [id number] LYNNE VINCENT NP [facility] [address] [place] [address] 04/27/2024 09:34:35 04/28/2024 11:17:46 test positive [id number] Z32.01 [id number] Pt presents today for a confirmati on of visit. has not been previously confirmed at another healthcare facility. Pt voiced that she is happy about this . TVUS today showed:IUP with Cardiac Activity. SONY based on this US.subchro naila hemorrhage noted. LMP: 03/01/24EDD: 12/18/24Ge stational Age: 6w 3dFHT: 131 bpm First trimester teaching provided.- --Foods and activities to avoid---We ight gain recommenda tions based on BMI---Safe meds---Simone entation to practice-- -Delivery locations- --LISET visit progressio n---Prenat al vitamins daily---To xoplasmosi s precaution s reviewed-- -[facility] Guide; What to expect on your maternity journey-- -S/S of SAB reviewed and when to seek care--BMI: 24.2-- does not want genetic testing-- PAP performed 09/15/2023 - - need records-- Repeat US to look at subchorion ic hemorrhage --Medicati ons Reviewed: PNV RTC - - 4 weeks for 1st OB, Labs, and Physical. Approximat dmitry thirty minutes spent with patient in consultati on (>50% face-to-fa ce). Patient labs and notes were reviewed. Patient questions were answered. Additional patient care was coordinate d. [id number] LILO BARROW [facility] [place] [address] [place] [address] 05/25/2024 10:02:24 05/25/2024 14:23:20 Subchorionic hematoma [id number] O46.8X9 [id number] TVUS shows KIESHA resolved pt denies VB care status 24 2188603 Z34.81 [id number] POC-- NOB labs done today-- Declines NIPT-- PAP Up to Date-- Pre-Pregna ncy BMI: 24-- RTC 4 weeks Guide: Given and reviewed. Toxoplasmo sis precaution s reviewed. Reviewed office visit schedule during . Reviewed Quickening and normal FHTs. Depression screening 171 243142 Z13.31 54273 EPDS score- 3Pt educated on normal scoring, and discussed depression precaution s and when to notify HCP/go to ER. Gestation period, 10 weeks 18763152 Z3A.10 6759372 screening 2437 44455 Z36.89 Postural o rthostatic tachycardia syndrome [id number] G90.A 796235 dx in high school no problems with prior , plan for MFM consult [id number] LILO BARROW [address] [place] [address] 05/29/2024 15:39:32 06/02/2024 12:53:43 Bacterial vaginosis 537094455 N76.0 B96.89 94507 Gestation period, 11 weeks 71198305 Z3A.11 8789564 Discussed PTL and precaution s given. Call our office or go to labor and delivery for the following: If you are less than 37 weeks and have more than 4 contractio ns an hour.Blurr ing of vision or spots before your eyes and/or HARuptured membranes or leakage of vaginal fluid -may be a steady trickle or large gush - may be clear, yellow, pink or green Vaginal bleeding-- bright red bleeding and/or clots needs medical care immediatel y.Any temperatur e above 100 degrees.An y burning or painful urination. Increased swelling in your face, hands, or feet.Stoma ch pains, cramps, nausea,or diarrhea. RTC in 4 weeks. [id number] HANK MUHAMMADLILO [facility] [place] [address] [place] [address] 06/22/2024 09:56:26 06/22/2024 12:23:30 care status [id number] Z34.82 24313395 Discussed PTL and precaution s given. Call our office or go to labor and delivery for the following: If you are less than 37 weeks and have move than 4 contractio ns an hour.Blurr ing of vision or spots before your eyes and/or HARuptured membranes or leakage of vaginal fluid -may be a steady trickle or large gush - may be clear, yellow, pink or green Vaginal bleeding-- bright red bleeding and/or clots needs medical care immediatel y.Any temperatur e above 100 degrees.An y burning or painful urination. Increased swelling in your face, hands, or feet.Stoma ch pains, cramps, nausea,or diarrhea. RTC in 4 weeks. Gestation period, 16 weeks 87137429 Z3A.16 4504726 Screening for disorder 160113228 Z36.0 3548004 [facility] [address] [place] [address] 07/20/2024 11:14:58 07/20/2024 12:07:56 Gestation period, 20 weeks 85887005 Z3A.20 7602810 Normal 2634141 2 Z34.82 0468104 Pt is here for a LISET appointmen t. She is taking vitamins. She has no complaints or questions. Reports feeling movement. Denies vaginal bleeding, abdominal cramps, N/V, contractio ns, or LOF. Denies headache, vision changes, swelling of hands or face, and epigastric pain. Discussed PTL and precaution s given. There are no identifiab le risk factors for pre-term labor. Reminded pt that I do not delivery babies. Will plan for pt to start meeting delivery providers after 28 week visit. [id number] [facility] [address] [place] [address] 08/17/2024 16:10:45 08/17/2024 17:51:35 Gestation period, 24 weeks 118614841 Z3A.24 7853836 Normal 0949373 2 Z34.92 23181975 Pt is here for a LISET appointmen t. She is taking vitamins. She has no complaints or questions. Reports feeling movement. Denies vaginal bleeding, abdominal cramps, N/V, contractio ns, or LOF. Denies headache, vision changes, swelling of hands or face, and epigastric pain. Discussed PTL and precaution s given. There are no identifiab le risk factors for pre-term labor. Reminded pt that I do not delivery babies. Will plan for pt to start meeting delivery providers after 28 week visit. [id number] Maria A Coates MD [facility] [address] [place] [address] 09/21/2024 11:14:28 09/21/2024 15:09:25 Normal 33331206 Z34.83 0653037 The patient was initially evaluated by CELESTINO Sherman, who completed the history examinatio n, and preliminar y assessment . I, Maria A Coates MD, entered the room to review and discuss the care plan with the patient. After reviewing the specific findings and documentat ion provided by Aleta, I confirmed the diagnosis and care plan, addressing any additional concerns or questions raised by the patient. The final plan of care was developed saravanan dale and has been documented accordingl y. screening 2437 52925 Z36.9 Will need 3T labs at next visit. GTT today Gestation period, 29 weeks 46179284 Z3A.29 7677228 Right uppe r quadrant pain 520940548 O26.893 R10.11 8161510262 Poor growth affecting management 145705848 O36.5920 61819156 [id number] Maria A Coates MD [facility] [address] [place] [address] 10/12/2024 10:57:17 10/12/2024 12:24:19 Normal 64122199 Z34.83 8089512 The patient was initially evaluated by CELESTINO Sherman, who completed the history examinatio n, and preliminar y assessment . I, Maria A Coates MD, entered the room to review and discuss the care plan with the patient. After reviewing the specific findings and documentat ion provided by Aleta, I confirmed the diagnosis and care plan, addressing any additional concerns or questions raised by the patient. The final plan of care was developed saravanan dale and has been documented accordingl y. screening 2437 33816 Z36.9 [facility] MFM consult: Agreed dating based on 1T U/S, fetus growth AGA. Recommend Co-managem ent. Plan to repeat growth in 4 weeks. Gestation period, 33 weeks 08430213 Z3A.33 2925582 [id number] Sasha Gilbert CNM [facility] [place] [address] [place] [address] 10/16/2024 14:31:07 10/16/2024 15:01:30 Gestation period, 31 weeks 58005409 Z3A.31 9376162 Denies vaginal bleeding, abdominal cramps, N/V, contractio ns, and LOF. Denies headache, vision changes, swelling of hands or face, or epigastric pain. Reports active movement. movement awareness discussed. PTL precaution s reviewed Urinary symptoms 6220045 08 R39.9 80773994 U dip inconclusi ve - will send for culture.In crease po hydrationF urther POC pending resultsPt informed of plan Health Concerns Section Related Observation LastModified by Organization Detai ls LastModified Time None Recorded Concern Status LastModified by Organization Details LastModified Time None Recorded Advance Directives Directive None Recorded Payers Insurance Date Sequence Insurance Name Policy Number Policy Gomez Covered Member ID Gomez Member ID Guarantor Name 05/22/2024 1 [place] 112 Valencia Mendez [id number] Valencia Mendez 08/14/2024 1 [facility] [id number] Valencia Mendez [id number] Valencia Mendez 10/31/2024 1 [place] [id number] 1 Tray Mendez [id number] Valencia Mendez Notes Date Note Type Note Provider Name and Address Organization Details Recorded Time 07/20/2024 text/html ROS as noted in the HPI Patient is here today for a routine OB visit. She is currently at 20 weeks gestation. vitamins: yes She has felt movement.Pt want to talk about US she got at today they didn't speak w/ her.Pt states she has been having right eye twitches. Pt states she called ahead but its still having problems. She denies any complaints of the presence of vaginal bleed, leaking fluid, abdominal cramps, nausea, vomiting, headache or visual disturbances. Pt has no concerns. [address] [place], [address], [employer] [facility] 07/20/2024 12:07:27 08/17/2024 text/html ROS as noted in the [facility] Patient is here today for a routine OB visit. She is currently at 24.1 weeks gestation. vitamins: yes She has felt movement.She denies any complaints of the presence of vaginal bleed, leaking fluid, abdominal cramps, nausea, vomiting, headache or visual disturbances [address] [place], [address], [employer] [facility] IV 08/17/2024 17:11:10 09/21/2024 text/html Patient is here today for a routine OB visit. She is currently at 29.1 weeks gestation. vitamins: yes She has felt movement. She denies any complaints of the presence of vaginal bleed, leaking fluid, abdominal cramps, nausea, vomiting, headache or visual disturbances.She is doing her glucose labs today. Maria A Coates MD [facility] [place], [address], [employer] 09/21/2024 14:56:52 10/12/2024 text/html ROS as noted in the HPI Patient is here today for a routine OB visit. She is currently at 30.3 weeks gestation. vitamins: yes She has felt movement. She denies any complaints of the presence of vaginal bleed, leaking fluid, abdominal cramps, nausea, vomiting, headache or visual disturbances. pt reports she got a second opinion about the due date, pt says she went to [facility] 2 weeks ago. pt now wants to touch base with Dr Coates again to get a understanding and make sure everyone is on the same page. pt also reports swelling for the last 2 weeks, swelling in lower calves, ankles, and feet. pt says rt leg gives a feeling and doesn't know if it because of swelling or Sciatica. pt has no other concerns. Maria A Coates MD [address] [place], [address], [employer] 10/17/2024 09:07:38 10/16/2024 text/html ROS as noted in the HPI Valencia is here for ob problem visitpatient 31.0 weekspatient c/o UTI symptoms since 10/14/19 25patient c/o urgency to urinate, hurts when urinate and lower back painspatient states baby is having good movement Sasha Gilbert CNM [address] [facility], [place], [address], [facility] [employer] IV 10/25/2024 11:40:50 OBGyn Episode Ob Episode Information Episode Created Date Number of Fetuses Patient Bloodtype Patient rh Status Prepregnancy Weight lbs Domestic Partner Domestic Partner Phone Father Name Denial Resolution Specialist Status 05/26/19 25 1 CLOSED Fetus Data First Name Last Name Admitted to NICU Weight (g) Sex Living Outcome Pediatric Complications Fetus ID Race Codes Race Delivery Type Full Term [id number] Sony Calculation Initial Sony Date Initial Exam Date Initial Exam Provider Initial Ultrasound Date Last Menstrual Period Date Ultra Sound Weeks Gestation 0 Eighteen To Twenty Week Sony Update Ultra Sound Date Fundal Height At Umbil Quickening Date Ultra Sound Latest Weeks Gestation Final Sony Confirmed By Final Sony Confirmed Date Final Sony Date Ultra Sound Latest Days Gestation 0 0 Menstrual History Last Menstrual Date Menses Monthly On Bcp Conception Prior Menses Frequency Hcg Plus Date Menarche Onset Age Delivery Information Delivery Date Delivery Type Labor Anesthesia Weeks Gestation Incision Type Labor Labor Length Hrs Delivered By Post Complications Tubal Sterilization Discharge Date Comments 4 false Discharge Information Feeding Method Contraceptive Method Maternal HG B and HCT Levels Ob Episode Information Episode Created Date Number of Fetuses Patient Bloodtype Patient rh Status Prepregnancy Weight lbs Domestic Partner Domestic Partner Phone Father Name Denial Resolution Specialist Status 05/25/19 25 1 O Negative OPEN Fetus Data First Name Last Name Admitted to NICU Weight (g) Sex Living Outcome Pediatric Complications Fetus ID Race Codes Race Delivery Type [id number] Problems Problem Notes Dopplers in room only does n ot want US Problem Name Start Date End Date Resolution Snomed Code Not e Postural orthostatic tachycardia syndrome 05/24/2024 [id number] M con sult Body mass index 20-24 - normal 05/24/2024 161916235 pre-preg BMI 24 Finding of pattern of 06/22/2024 166350724 Short interval - last delivery 08/02/23 Bacteriuria 05/25/2024 71697401 GBS pos itive on urine culture at urgent care early in preg Sony Calculation Initial Sony Date Initial Exam Date Initial Exam Provider Initial Ultrasound Date Last Menstrual Period Date Ultra Sound Weeks Gestation 05/24/2024 04/27/2024 03/01/2024 8 Eighteen To Twenty Week Sony Update Ultra Sound Date Fundal Height At Umbil Quickening Date Ultra Sound Latest Weeks Gestation Final Sony Confirmed By Final Sony Confirmed Date Final Sony Date Ultra Sound Latest Days Gestation 06/22/19 25 14 [email or web address] 09/21/2024 12/19/19 25 3 Pre- Flowsheet Flowsheet Date 05/25/2024 Casas Score Blood Edema Fundus Height Fundus Units Glucose Ketones Leukocytes Nitrite Labor Signs Protein Cervic Dilation Cervic Effacement Cervic Station none none none neg Type Weight in lbs Pre/Post Dialysis Refused With clothes 147.435342000231 BP Diastolic BP Location Tested BP Systolic BP Type 64 116 sitting Fetus Heart Rate Present A 175 Fetus Movement A No Comments 1st OBV- Pre-preg BMI 24, pr evious x1- denies complications with prior preHx of POTS MFM consult sentNo OB complaintsEPDS score 3NOB labs todayTVUS today Subchorionic hemorrhage has resolvedGBS in urine on urine culture at urgent care in [place], finished abx, will obtain culture results.RTC 4 weeks, plan for MSAFP at next visit. Flowsheet Date 05/29/2024 Casas Score Blood Edema Fundus Height Fundus Units Glucose Ketones Leukocytes Nitrite Labor Signs Protein Cervic Dilation Cervic Effacement Cervic Station none neg Type Weight in lbs Pre/Post Dialysis Refused With clothes 147.412815192454 BP Diastolic BP Location Tested BP Systolic BP Type 66 112 sitting Fetus Heart Rate Present A 163 Fetus Movement A No Comments Pt was seen at [facility] for l eaking fluid dx with BV, here for ER follow up wanted to discuss with our office prior to starting medication. Pt would like Metrogel rx sent. Denies cramping or VB. RTC in 4 weeks. Flowsheet Date 06/22/2024 Casas Score Blood Edema Fundus Height Fundus Units Glucose Ketones Leukocytes Nitrite Labor Signs Protein Cervic Dilation Cervic Effacement Cervic Station none neg Type Weight in lbs Pre/Post Dialysis Refused With clothes 150.977751826626 BP Diastolic BP Location Tested BP Systolic BP Type 62 108 sitting Fetus Heart Rate Present A 146 Fetus Movement A Yes Comments No ob concerns, saw MFM yest erday and they are changing due date to reflect LMP SONY is 12/06/24 pt would be 16 weeks 1 day today per LMP MSAFP todayHx short inteval MFM recommends anatomy with them. RTC in 4 weeks Flowsheet Date 07/20/2024 Casas Score Blood Edema Fundus Height Fundus Units Glucose Ketones Leukocytes Nitrite Labor Signs Protein Cervic Dilation Cervic Effacement Cervic Station none none neg Type Weight in lbs Pre/Post Dialysis Refused With clothes 155.390687452285 BP Diastolic BP Location Tested BP Systolic BP Type 60 110 sitting Fetus Heart Rate Present A 148 Present Fetus Movement A Yes Comments Pt had Anatomy US with MFM luciana cordero, report not in chart. Flowsheet Date 08/17/2024 Casas Score Blood Edema Fundus Height Fundus Units Glucose Ketones Leukocytes Nitrite Labor Signs Protein Cervic Dilation Cervic Effacement Cervic Station none none neg Type Weight in lbs Pre/Post Dialysis Refused Weight 159.411140116562 BP Diastolic BP Location Tested BP Systolic BP Type 70 L arm 118 sitting Fetus Heart Rate Present A 146 Present Fetus Movement A Yes Comments Anatomy with MFM: EFW and AF V WNL. The transvaginal cervical length is reassuring.No major malformations were seen within the limitations of ultrasound. Discussed 1 hour gct and 3rd Trimester labs next visit. Flowsheet Date 09/21/2024 Casas Score Blood Edema Fundus Height Fundus Units Glucose Ketones Leukocytes Nitrite Labor Signs Protein Cervic Dilation Cervic Effacement Cervic Station none none none neg Type Weight in lbs Pre/Post Dialysis Refused Weight 165.883627005726 BP Diastolic BP Location Tested BP Systolic BP Type 80 L arm 118 sitting Fetus Heart Rate Present A 135 Fetus Movement A Yes Comments - Sent to MFM for history of POTS syndrome- MFM diagnosed with IUGR based on SONY of 12/06/2024 (LMP)- LMP sure. However, patient was , positive for Norovirus in early first trimster, and short interval (8 months old).- First u/s at [facility] with 12 day discrepency dating her at 12/18/2024 (6 week u/s)- Discussed with patient. Recommend second opinion as usually dating would be by 6 week u/s in this clinical scenario. Flowsheet Date 10/12/2024 Casas Score Blood Edema Fundus Height Fundus Units Glucose Ketones Leukocytes Nitrite Labor Signs Protein Cervic Dilation Cervic Effacement Cervic Station trace none none neg Type Weight in lbs Pre/Post Dialysis Refused With clothes 168.953016932926 BP Diastolic BP Location Tested BP Systolic BP Type 75 L arm 115 sitting Fetus Heart Rate Present A 145 Present Fetus Movement A Yes Comments Growth with [facility] last alexei lewis, states EFW 87%. Pt had consult with [facility] and agreed of SONY of 12/18/2054 based on 1T U/S. Pt states she has repeat growth in 3 weeks with [facility], discussed that she can do that with our office. Also states MFM told her she did not need to do weekly testing anymore. RTC in 2 weeks. Flowsheet Date 10/16/2024 Casas Score Blood Edema Fundus Height Fundus Units Glucose Ketones Leukocytes Nitrite Labor Signs Protein Cervic Dilation Cervic Effacement Cervic Station Type Weight in lbs Pre/Post Dialysis Refused With clothes 169.426300331958 BP Diastolic BP Location Tested BP Systolic BP Type 60 110 sitting Fetus Heart Rate Present A 120 Fetus Movement A Yes Comments UC visit - see A/P Menstrual History Last Menstrual Date Menses Monthly On Bcp Conception Prior Menses Frequency Hcg Plus Date Menarche Onset Age 0103/01/2024 Genetic Screening And Infection History Question Response Note Patient's Age Will Be 35 Years Or Older At Estim ated Date of Delivery false Personal or Family History o f Neural Tube Defect (Meningomyelocele, Spina Bifida, Or Anencephaly) false Personal or Family History of Congenital Heart D efect false Maternal Metabolic Disorder (eg, Type 1 Diabetes , PKU) false Recurrent Loss, Or A Stillbirth false Patient Or Partner Has History Of Genital Herpes false Prior GBS-infected child false History of HIV false History of Hepatitis false Genetic Carrier Screen positive false Delivery Information Delivery Date Delivery Type Labor Anesthesia Weeks Gestation Incision Type Labor Labor Length Hrs Delivered By Post Complications Tubal Sterilization Discharge Date Comments Discharge Information Feeding Method Contraceptive Method Maternal HG B and HCT Levels
--- OUTSIDE RECORDS SUMMARY | 2025-01-12 10:09 | XMS_ITS | Clinical Summary ---
Author Organization [facility] [employer] Address [address] [facility] [place] [address] Care Team Providers Care Dispatcher Service Chief Name Role Phone Unknown, Provider Primary Care Provider Unavaila ble Source Comments [facility] [employer],non-owned Affiliates and Associated Physician Practices is amultiple site organization consisting of ambulatory clinics and hospital sitesin [place], [place], [place] and [place]. This disclosure is being madepursuant to the Care Everywhere program and may not contain all information available regarding this patient. Last updated 17.[facility] [employer] Allergies Active Allergy Reactions Criticality Noted Date [...] Description 11/27/2024 Telephone [facility] - [facility]ORATORY [facility]UREMAN [address] [facility] [address] [place] [address] Group, u Forestry Crew Chief Care 11/22/2024 Telephone [facility] - LABORATORY CUREMAN [address] [place] [address] [facility] Question 11/17/2024 2:40 PM CDT visit [facility] - LABORATORY CUREMAN [address] [place] [address] Liyah Dent MD [place]: [id number] 11/17/2024 Travel 11/07/2024 Telephone [facility] - LABORATORY CUREMAN [address] [place] [address] Yamel Wilson APRN-CNP Returned Call 11/07/2024 Telephone [facility] - LABORATORY CUREMAN [address] [place] [address] Yamel Wilson APRN-CNP Follow-up (Follow up; retuning patient call) 11/04/2024 Telephone [facility] [address] [place] [address] Angela Cedeno MD Question 10/26/2024 7:30 AM CDT - 10/26/2024 11:59 PM CDT Hospital Encounter [facility] [address] [place] [address] Shiela Hanley MD Discharge Disposition: Home or Self Care 10/26/2024 Telephone [facility] - LABORATORY CUREMAN [address] [place] [address] Shorey, Yamel, HISTORY PROFESSOR-PARCEL CARRIER Appointment (Call to schedule a new pt appointment) from Last 3 Months Immunizations Immunization Administration [...] 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 Para 1 [id number] 1. live 08/02/2023. Details: Vaginal delivery, full-term Lab Tests Test Date Result NIPT Low risk Maternal Assessment Physical Exam Height 165 cm, 5 ft 5 in. Weight 78 kg, 171 lb. Initial weight 67 kg, 147 lb. BMI 28.46 kg/m . Initial BMI 24.46 kg/m . Weight gain 11 kg, 24 lb Method ====== Transabdominal ultrasound. View: Sufficient ========= Gotti . Number of fetuses: 1 Dating ====== [...] 4 lb 12 oz EFW by Hadlock ([id number]) appropriate Growth Overview Exam date [place] BPD [...] for known or suspected placental insufficiency Procedures 66392: US Preg Uterus Follow Up [employer] PACS Anatomical Region Laterality Modality Other 10/26/2024 7:42 AM CDT [facility] ORDERABLES Edited Result - Final from Last 3 Mon[place] [id number] DIMITRI SELF PAY NO INSURANCE Member Subscriber Plan / Payer (Ef fective for All Dates) Name:Valencia Be Member ID:Not on file Relation to Subscriber:Not on file Name:VALENCIA BE Subscriber ID:Not on file (Home) Address: [address] [place] [address] [place] [address] Payer ID:Not on file Group ID:Not on file Type:Self Pay Address: [place], [place] Care Teams Dispatcher Service Chief Relationship Specialty Start Date End Date Unknown, Provider PCP - General 06/21/24
--- OUTSIDE RECORDS SUMMARY | 2025-01-12 10:09 | XMS_ITS | Clinical Summary ---
Author Organization [facility] Address [address] [place] [address], [place] [address] Care Team Providers Care Meat Seafood Associate Name Role Phone Unavailable Primary Care Provider [...] Maternal Grandfather Maternal Grandmother Alive Mother Avis Fernando Alive Paternal Grandfather Paternal Grandmother Social History Tobacco Use Types Packs/Day Years Used Date Smoking Tobacco: Never Smokeless Tobacco: Never Tobacco Cessation:Counseling Given: Yes Alcohol Use Standard Drinks/Week Comments Never 0 (1 standard drink = 0.6 oz pur e alcohol) [facility] Utilities Answer Date Recorded In the past 12 months has th e [place], gas, oil, or water [employer] threatened to shut off services in your [...] place to sleep or slept in a custodial (including now)? 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 Gender Identity Not on file Sexual Orientation Not on file Last Filed Vital Signs Vital Sign Reading Time Taken Comments Blood Pressure 116/80 03/10/2024 7:44 AM LATHE OPERATOR CONTACT LENS Pulse 109 10/23/2023 11:34 AM CDT Temperature 36.8 C (98.2 F) 10/23/2023 11:34 AM CDT Respiratory Rate 16 10/23/2023 11:34 AM CDT Oxygen Saturation 100% 10/23/2023 11:34 AM CDT Inhaled Oxygen Concentration - - Weight 67.3 kg (148 lb 6.4 oz) 03/10/2024 7:44 A M LATHE OPERATOR CONTACT LENS Height 165.1 cm (5' 5) 03/10/2024 7:44 AM LATHE OPERATOR CONTACT LENS Body Mass Index 24.7 03/10/2024 7:44 AM LATHE OPERATOR CONTACT LENS Plan of Treatment Health Maintenance Due Date [...] TAMTRON - 09/21/2023 1:07 PM CDT CASE: [id number] PATIENT: VALENCIA BE SPECIMEN SOURCE: Cervical CLINICAL INFORMATION: Routine Screening; HPV typing requested SPECIMEN: A. THIN PREP PAP Imaging Directed Cytology PRIOR PAP SMEAR DIAGNOSES: DATE PATHOLOGY# DIAGNOSIS PHYSICIAN 10/22/21 [id number] SONYA CARTER NP GENERAL CATEGORIZATION: Negative for intraepithelial lesion or malignancy. SPECIMEN ADEQUACY: Satisfactory for evaluation. Interpretation performed by NICOLAS TIPTON(ASCP). Electronically signed 09/17/2023 1:26:[address] [place] [id number] HPV RESULTS: Negative for High Risk [...] TICO TIPTON(ASC). Electronically signed 09/21/2023 1:07:[address] [place], [place] [id number] us Zora Umaña NP PATHOLOGY/CYTOLOGY ORDERABLES E dited Result - Final Performing Organization Address [facility]/ZIP Co de Phone Number BETH * HEPATITIS C ANTIBODY (12/22/2022 4:00 PM CDT) Hepatitis C IgG Antibody NONREACTIVE (NEG) NONREACTIVE (NEG) [facility] Hep C IgG Comment SEE NOTES [facility] Comment: THIS ASSAY HAS NOT BEEN FDA CLEARED OR APPROVED FOR THE SCREENING OF BLOOD OR PLASMA DONORS. TEST PERFORMED USING THU ELECTROCHEMILUMINESCENCE TECHNOLOGY Blood specimen (specimen) 12/22/2022 4:00 PM CDT 12/22/2022 4:07 PM CDT us Alyssa Sanches MD IMMUNOLOGY ORDERABLES Final R esult Performing Organization Address [facility]/ZIP Co de Phone Number [facility] [address] [place] [address] from Last 3 Months or Most Recently Relevant to Health Maintenance Insurance ANTHEM/BCBS ANTHEM/BCBS ANTHEM/BCBS ANTHEM/BCBS ANTHEM/BCBS ANTHEM/BCBS Advance Directives * Full Code (Latest Code Status on File) Date Activated Date Inactivated Comments 08/02/2023 2:28 AM
--- OUTSIDE RECORDS SUMMARY | 2025-01-12 10:09 | XMS_ITS | Encounter Summary ---
Author Organization [facility] Address [address] [facility] [place] [address] Care Team Providers Care Radio Officer Name Role Phone Unknown, Provider Primary Care Provider Unavaila ble Reason for Visit * Reason Onset Date Comments Follow-up 11/07/2024 Follow up; retun ing patient call Encounter Details Date Type Department Care Team (Late st Contact Info) Description 11/07/2024 Telephone [facility] - CHISEL TRIMMER [address] [facility] [address] [place] [address] Yamel Wilson APRN-E LEARNING MANAGER [address] [place] [address] Follow-up (Follow up; retuning patient [...] to know what she should do Cb [phone] documented in this encounter Plan of Treatment Not on file documented as of this encounter Visit Diagnoses Not on filedocumented in this encounter Care Teams Radio Officer Relationship Specialty Start Date End Date Unknown, Provider PCP - General 06/21/24 documented as of this encounter
--- OUTSIDE RECORDS SUMMARY | 2025-01-12 10:09 | XMS_ITS | Clinical Summary ---
Author Organization [facility] [employer] Address [address] [place] [address] Care Team Providers Care Field Captain Name Role Phone No, Physician Primary Care Provider [phone] Allergies No known active allergies Medications No known medications Active Problems Problem Noted Date Diagnosed Date Supervision of high risk in [facility] 09/25/2024 Overview (10/02/2024): [] OB consult only, [x] Co-management vs. [] Full M Care; [] Red Team [x] Blue Team Referring Provider: Maria A Coates [id number] [] or Medicare Insurance [x] Dating Criteria: [...] [] MOC: [] Method of feeding: [] Water Main Installer Helper (specifically which provider): [] PP Depression Discussed: [] PP visits scheduled: Vaccines [] Flu Shot (Oct-Jan): [] COVID vaccine: [] Tdap (27-36wks): [] RSV vaccine (32-36wks): [] PP HPV vaccine counseling (<=26 yo): Assessment & Plan (10/02/2024 7:56 PM CDT): [] OB consult only, [x] Co-management vs. [] Full MFM Care; [] Red Team [x] Blue Team Referring Provider: Maria A Coates [id number] [] [employer] or Medicare Insurance [x] Dating Criteria: LMP:03/01/24 [...] und, CRL report scanned under Media, p4 Surgical History Surgery Date Site/Laterality Comments LAPAROSCOPIC [...] Estimated Date of Delivery 09/25/2024 - Present (01/12/2025) 12/18/2024 (set by Yossi Pan MD on 09/29/2024 based on Ultrasound on 04/27/2024) Dating Summary Based On SONY GA Diff Last Menstrual Period on 03/01/2024 12/06/2024 +1w5d Ultrasound on 04/27/2024 12/18/2024 Working GA:6w3d Comment:CRL report scanned u nder Media, p4 Vitals Date GA Fund Present FHR Mvmt BP Weight Edema Alb Glu Ket Dil/ Eff/Sta 28w4d Inpatient data not displayed here. See encounter summary. Notes Progress Notes - Telemedicin e - 09/29/2024 - GA:28w4d 09/29/2024 - w4d - Asiya Pna MD Maternal Medicine Consult Note This was a telemedicine visit with Valencia, her partner and daughter which took place via Real-time video connection ([employer], [employer] or similar).During the visit, I was located in the office and the patient was located in our [facility] in the [facility]. My visit with the patient [...] year in high school 2009. Followed at [facility] early on. Hasn't been on medications in many years, controlled with lifestyle changes. Chronic daily migraines usp, no current medications for them. Has also [...] Use: Not At Risk (07/20/2023) Received from [facility] Alcohol Use Frequency of Alcohol Consumption: Not [...] Blue Team Referring Provider: Maria A Coates [id number] [] or Medicare Insurance [x] Dating Criteria: [...] warnings reviewed - No need for further M clinic follow up unless new questions/concerns/complications arise Asiya Pan MD [place]oat Inspector Division of Maternal- Medicine Progress Notes - [...] on patient's age to complete this topic Insurance [facility] [employer] CHOICE [facility] ACCESS CHOICE Care Teams Field Captain Relationship Specialty Start Date End Date No, Physician PCP - General 09/21/24
== END 2024-11-25 16:15 | disposition home or self-care (01) | DRG 807 ==
LOC: ANHOB2 11-24 10:30 → ANHLDR 01-12 10:18
PROVIDERS: Admitting Provider Obstetrics & Gynecology; Visit Provider Obstetrics & Gynecology
DX: O45.93 Premature separation of placenta, unspecified, third trimester (principal); Z37.0 Single live birth; Z3A.36 36 weeks gestation of pregnancy; O70.0 First degree perineal laceration during delivery; O71.82 Other specified trauma to perineum and vulva
CPT/HCPCS: 36415; 76815; 80307; 81001; 81279; 82948; 85014; 85018; 85027; 85384; 85460; 85461; 85610; 85730; 86593; 86703; 86850; 86860; 86870; 86880; 86900; 86901; 86902; 86971; 87086; 88307; 90384; 99199; A9270; G0432; J0290; J2590; J2790; J2795; J7120

== ENCOUNTER 2025-01-23 13:40 | Outpatient (CLI) | payer BC, SELFPAY ==
--- NOTE | ~2025-01-23 | US_ITS ---
EXAMINATION: US pelvic complete w TV INDICATION: Irregular menstruation. Vaginal bleeding. Comparison:No prior studies for comparison. TECHNIQUE: Multiple transabdominal and endovaginal sonographic images of the pelvis performed. FINDINGS: The uterus measures 8.5 x 3.7 x 4.6 cm. The endometrial complex measures 6 mm. Trace fluid in the cervix. The right ovary measures 3.3 x 2.6 x 3.4 cm and the left ovary measures 2.7 x 2 x 1.9 cm. There are small follicles in each ovary. Normal doppler signal in both ovaries. There is no free fluid in the pelvis. There are no abnormal masses seen on either side. IMPRESSION: 1. Unremarkable pelvic ultrasound. Reviewed, dictated and finalized at location I. RUMENTS SALES REPRESENTATIVE
--- OUTSIDE RECORDS SUMMARY | 2025-01-23 14:40 | XMS_ITS | Encounter Summary ---
Author Organization [facility] Address [address] [place] [address] Care Team Providers Care Change Coordinator Name Role Phone Unknown, Provider Primary Care Provider Unavaila ble Reason for Visit * Reason Onset Date Comments Follow-up 11/07/2024 Follow up; retun ing patient call Encounter Details Date Type Department Care Team (Late st Contact Info) Description 11/07/2024 Telephone [facility] - MEDICAL AUDITOR [address] [facility] [address] [place] [address] Yamel Wilson APRN-DATA ANALYST [address] [place] [address] Follow-up (Follow up; retuning patient [...] to know what she should do Cb [phone] documented in this encounter Plan of Treatment Not on file documented as of this encounter Visit Diagnoses Not on filedocumented in this encounter Care Teams Change Coordinator Relationship Specialty Start Date End Date Unknown, Provider PCP - General 06/21/24 documented as of this encounter
--- OUTSIDE RECORDS SUMMARY | 2025-01-23 14:40 | XMS_ITS | Encounter Summary ---
Author Organization [facility] Address [address] [place] [address] Care Team Providers Care Heel Washer Stringing Machine Operator Name Role Phone Unknown, Provider Primary Care Provider Unavaila ble Reason for Visit * Reason Onset Date Comments Returned Call 11/07/2024 Encounter Details Date Type Department Care Team (Late st Contact Info) Description 11/07/2024 Telephone [facility] - NURSES' ASSOCIATION EXECUTIVE DIRECTOR [address] [facility] [address] [place] [address] Yamel Wilson APRN-MANAGER INTERNATIONAL [address] [place] [address] Returned Call Social History Tobacco [...] for testing. List of medications sent via [employer] that are ok to take during . * Telephone Encounter - Nancy Lizama - 11/07/2024 10:55 AM CDT Pt returning call to office. CB: [phone] documented in this encounter Plan of Treatment Not on file documented as of this encounter Visit Diagnoses Not on filedocumented in this encounter Care Teams Heel Washer Stringing Machine Operator Relationship Specialty Start Date End Date Unknown, Provider PCP - General 06/21/24 documented as of this encounter
--- OUTSIDE RECORDS SUMMARY | 2025-01-23 14:40 | XMS_ITS | Clinical Summary ---
Author Organization [facility] [employer] Address [address] [place] [address] Care Team Providers Care Shift Engineer Name Role Phone Unknown, Provider Primary Care Provider Unavaila ble Source Comments [facility] [employer],non-owned Affiliates and Associated Physician Practices is amultiple site organization consisting of ambulatory clinics and hospital sitesin [place], [place], [place] and [place]. This disclosure is being madepursuant to the Care Everywhere program and may not contain all information available regarding this patient. Last updated 17.[facility] [employer] Allergies Active Allergy Reactions Criticality Noted Date [...] Description 11/27/2024 Telephone [facility] - CERTIFIED APPLIANCE SERVICE TECHNICIAN [address] [facility] [address] [place] [address] Group, u Provider Scribe Care 11/22/2024 Telephone [facility] - CERTIFIED APPLIANCE SERVICE TECHNICIAN [address] [place] [address] [facility] Question 11/17/2024 2:40 PM CDT visit [facility] - CERTIFIED APPLIANCE SERVICE TECHNICIAN [address] [facility] [address] [place] [address] Liyah Dent MD GA: 35w4d 11/17/2024 Travel 11/07/2024 Telephone [facility] - CERTIFIED APPLIANCE SERVICE TECHNICIAN [address] [facility] [address] [place] [address] Yamel Wilson APRN-CNP Returned Call 11/07/2024 Telephone [facility] - CERTIFIED APPLIANCE SERVICE TECHNICIAN [address] [facility] [address] [place] [address] Yamel Wilson APRN-CNP Follow-up (Follow up; retuning patient call) 11/04/2024 Telephone [facility] OB [address] [place] [address] Angela Cedeno MD Question 10/26/2024 7:30 AM CDT - 10/26/2024 11:59 PM CDT Hospital Encounter [facility] [address] [place] [address] Shiela Hanley MD Discharge Disposition: Home or Self Care 10/26/2024 Telephone [facility] - CERTIFIED APPLIANCE SERVICE TECHNICIAN [address] [facility] [address] [place] [address] Shorey, Yamel, CORRECTIONS COUNSELOR-ORE BRIDGE OPERATOR Appointment (Call to schedule a new pt [...] 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 Not on file Not [...] (AMB) [facility] (11/17/2024 2:56 PM CDT) Specific [place] UA 1.[address] [facility] [address] pH UA [address] [facility] [address] WBC UA neg [facility] [address] Nitrite UA neg [facility] [address] Protein UA trace [facility] [address] Glucose UA normal [facility] [address] Ketones UA POCT neg [facility] [address] Urobilinogen UA normal [facility] [address] Bilirubin UA POCT neg [facility] [address] Blood Urine POCT neg [facility] [address] Urine URINE / Unknown 11/17/2024 2 :56 PM CDT Liyah Costa MD LAB - POINT OF CARE OR DERABLES Final Result [facility] [address] [place] [address], [facility] [phone] * Sonogram - Complete (10/26/2024 7:42 AM CDT) Linked Results Indication ======== Short interval POTS, Migraines on no medication, Short interval History ====== OB History 2. Para 1 [id number] 1. live 08/02/2023. Details: Vaginal delivery, full-term [...] 4 lb 12 oz EFW by Hadlock ([id number]) appropriate Growth Overview Exam date [place] BPD [...] for known or suspected placental insufficiency Procedures 19862: US Preg Uterus Follow Up Solutions PACS Anatomical Region Laterality Modality Other 10/26/2024 7:42 AM CDT Crystal [facility] ORDERABLES Edited Result - Final from Last 3 Mon[place] [address] DIMITRI SELF PAY NO INSURANCE Member Subscriber Plan / Payer (Ef fective for All Dates) Name:Valencia Be Member ID:Not on file Relation to Subscriber:Not on file Name:VALENCIA BE Subscriber ID:Not on file (Home) Address: [address] [place] [address] [place] [address] Payer ID:Not on file Group ID:Not on file Type:Self Pay Address: [place], [place] Care Teams Shift Engineer Relationship Specialty Start Date End Date Unknown, Provider PCP - General 06/21/24
--- OUTSIDE RECORDS SUMMARY | 2025-01-23 14:40 | XMS_ITS | Clinical Summary ---
Author Organization [facility] [employer] Address [address] [place] [address] Care Team Providers Care Automatic Print Developer Name Role Phone No, Physician Primary Care Provider Allergies No known active allergies Medications No known medications Active Problems Problem Noted Date Diagnosed Date Supervision of high risk in [facility] 09/25/2024 Overview (10/02/2024): [] OB consult only, [x] Co-management vs. [] Full M Care; [] Red Team [x] Blue Team Referring Provider: Maria A Coates [id number] [] or Medicare Insurance [x] Dating Criteria: [...] [] MOC: [] Method of feeding: [] Reconnaissance Crewmember (specifically which provider): [] PP Depression Discussed: [] PP visits scheduled: Vaccines [] Flu Shot (Oct-Jan): [] COVID vaccine: [] Tdap (27-36wks): [] RSV vaccine (32-36wks): [] PP HPV vaccine counseling (<=26 yo): Assessment & Plan (10/02/2024 7:56 PM CDT): [] OB consult only, [x] Co-management vs. [] Full MFM Care; [] Red Team [x] Blue Team Referring Provider: Maria A Coates [id number] [] [email or web address] or Medicare Insurance [x] Dating Criteria: LMP:03/01/24 [...] Estimated Date of Delivery 09/25/2024 - Present (01/23/2025) 12/18/2024 (set by Yossi Pan MD on [...] - GA:28w4d 09/29/2024 - w4d - Asiya Pan MD Maternal Medicine Consult Note This was a telemedicine visit with Valencia, her partner and daughter which took place via Real-time video connection ([employer] or similar).During the visit, I was located in the office and the patient was located in our [facility] in the [facility]. My visit with the patient started at [...] year in high school 2009. Followed at [facility] early on. Hasn't been on medications in many years, controlled with lifestyle changes. 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 Has also [...] Use: Not At Risk (07/20/2023) Received from [facility] Alcohol Use Frequency of Alcohol Consumption: [...] No Intellectual disability or Fragile X: No [place] disease: No Other defects or genetic disorders: [...] Blue Team Referring Provider: Maria A Coates [id number] [] or Medicare Insurance [x] Dating Criteria: [...] unless new questions/concerns/complications arise Asiya Pan MD Automotive Glass Installer Division of Maternal- Medicine Progress Notes - [...] patient's age to complete this topic Insurance [facility] Glass CHOICE [facility] ACCESS CHOICE Care Teams Automatic Print Developer Relationship Specialty Start Date End Date No, Physician PCP - General 09/21/24
== END 2025-01-23 13:41 | disposition home or self-care (01) ==
PROVIDERS: Visit Provider Obstetrics & Gynecology
DX: N92.6 Irregular menstruation, unspecified (principal)
CPT/HCPCS: 76830; 76856

== ENCOUNTER 2025-02-19 07:55 | Outpatient (CLI) | payer BC, SELFPAY ==
--- NOTE | ~2025-02-19 | US_ITS ---
US right upper quadrant INDICATION: Abnormal blood chemistries PROCEDURE: Realtime right upper abdominal ultrasound. COMPARISON: No prior studies for comparison. FINDINGS: The pancreas is normal without focal mass or pancreatic ductal dilation. Liver echotexture is normal without focal mass or intrahepatic biliary dilatation. There is normal directional flow in the portal vein. Gallbladder is surgically absent. Common bile duct measures 2.9 mm. No sonographic Toribio's sign. IMPRESSION: 1: Normal limited abdominal ultrasound. Reviewed, dictated and finalized at location O. T LOADER MACHINE OPERATOR
--- OUTSIDE RECORDS SUMMARY | 2025-02-19 08:01 | XMS_ITS | Clinical Summary ---
Author Organization [facility] [employer] Address [address] [place] [address] Care Team Providers Care Neuroscientist Name Role Phone No, Physician Primary Care Provider [phone] Allergies No known active allergies Medications No known medications Active Problems Problem Noted Date Diagnosed Date Supervision of high risk in [facility] 09/25/2024 Overview (10/02/2024): [] OB consult only, [x] Co-management vs. [] Full M Care; [] Red Team [x] Blue Team Referring Provider: Maria A Coates [id number] [] or Medicare Insurance [x] Dating Criteria: [...] [] MOC: [] Method of feeding: [] Ratchet Setter (specifically which provider): [] PP Depression Discussed: [] PP visits scheduled: Vaccines [] Flu Shot (Oct-Jan): [] COVID vaccine: [] Tdap (27-36wks): [] RSV vaccine (32-36wks): [] PP HPV vaccine counseling (<=26 yo): Assessment & Plan (10/02/2024 7:56 PM CDT): [] OB consult only, [x] Co-management vs. [] Full MFM Care; [] Red Team [x] Blue Team Referring Provider: Maria A Coates [id number] [] [employer] or Medicare Insurance [x] Dating Criteria: LMP:03/01/24 [...] Estimated Date of Delivery 09/25/2024 - Present (02/19/2025) 12/18/2024 (set by Yossi Pan MD on [...] which took place via Real-time video connection ([employer], [email or web address] or similar).During the visit, I was located in the office and the patient was located in our [facility] in the [facility]. My visit with the patient started at [...] year in high school 2009. Followed at [facility] early on. Hasn't been on medications in many years, controlled with lifestyle changes. Chronic daily migraines half-way, no current medications for them. Has also [...] Use: Not At Risk (07/20/2023) Received from [facility] Alcohol Use Frequency of Alcohol Consumption: Not [...] Blue Team Referring Provider: Maria A Coates [id number] [] or Medicare Insurance [x] Dating Criteria: [...] unless new questions/concerns/complications arise Asiya Pan MD Principal Planner Division of Maternal- Medicine Progress Notes - [...] age to complete this topic Insurance [facility] [email or web address] CHOICE [facility] ACCESS CHOICE Care Teams Neuroscientist Relationship Specialty Start Date End Date No, Physician PCP - General 09/21/24
--- OUTSIDE RECORDS SUMMARY | 2025-02-19 08:01 | XMS_ITS | Clinical Summary ---
Author Organization [facility] [employer] Address [address] [place] [address] Care Team Providers Care Digester Cook Name Role Phone Unknown, Provider Primary Care Provider Unavaila ble Source Comments [facility] [employer],non-owned Affiliates and Associated Physician Practices is amultiple site organization consisting of ambulatory clinics and hospital sitesin [place], [place], [place]. This disclosure is being madepursuant to the Care Everywhere program and may not contain all information available regarding this patient. 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
--- OUTSIDE RECORDS SUMMARY | 2025-02-19 08:01 | XMS_ITS | Encounter Summary ---
Author Organization [facility] Address [address] [facility] [place] [address] Care Team Providers Care Cook Taco Name Role Phone Unknown, Provider Primary Care Provider Unavaila ble Reason for Visit * Reason Onset Date Comments Returned Call 11/07/2024 Encounter Details Date Type Department Care Team (Late st Contact Info) Description 11/07/2024 Telephone [facility] - INSTRUMENT REPAIRER HELPER [address] [facility] [address] [place] [address] Yamel Wilson APRN-MINI SHIFTER [address] [place] [address] Returned Call Social History Tobacco [...] for testing. List of medications sent via [employer] that are ok to take during . * Telephone Encounter - Nancy Lizama - 11/07/2024 10:55 AM CDT Pt returning call to office. CB: [phone] documented in this encounter Plan of Treatment Not on file documented as of this encounter Visit Diagnoses Not on filedocumented in this encounter Care Teams Cook Taco Relationship Specialty Start Date End Date Unknown, Provider PCP - General 06/21/24 documented as of this encounter
--- OUTSIDE RECORDS SUMMARY | 2025-02-19 08:01 | XMS_ITS | Encounter Summary ---
Author Organization [facility] Address [address] [address] Care Team Providers Care Fittings Finisher Name Role Phone Unknown, Provider Primary Care Provider Unavaila ble Reason for Visit * Reason Onset Date Comments Follow-up 11/07/2024 Follow up; retun ing patient call Encounter Details Date Type Department Care Team (Late st Contact Info) Description 11/07/2024 Telephone [facility] - STAVE CUTTING SUPERVISOR [address] [place] [address] Yamel Wilson APRN-COMMERCIAL ANNOUNCER [address] [place] [address] Follow-up (Follow up; retuning patient [...] to know what she should do Cb [phone] documented in this encounter Plan of Treatment Not on file documented as of this encounter Visit Diagnoses Not on filedocumented in this encounter Care Teams Fittings Finisher Relationship Specialty Start Date End Date Unknown, Provider PCP - General 06/21/24 documented as of this encounter
--- OUTSIDE RECORDS SUMMARY | 2025-02-19 08:01 | XMS_ITS | Clinical Summary ---
Author Organization [facility] Address [address] [place] [address], [place] [address] Care Team Providers Care Cake Cutter Machine Name Role Phone Unavailable Primary Care Provider [...] drink = 0.6 oz pur e alcohol) [facility] Utilities Answer Date Recorded In the past 12 months has th e [employer], gas, oil, or water [employer] threatened to shut off services in your [...] on file Legal Sex Female 1:11 PM SEWER CONTRACTOR Gender Identity Not on file Sexual Orientation Not on file Last Filed Vital Signs Vital Sign Reading Time Taken Comments Blood Pressure 116/80 03/10/2024 7:44 AM SEWER CONTRACTOR Pulse 109 10/23/2023 11:34 AM CDT Temperature 36.8 C (98.2 F) 10/23/2023 11:34 AM CDT Respiratory Rate 16 10/23/2023 11:34 AM CDT Oxygen Saturation 100% 10/23/2023 11:34 AM CDT Inhaled Oxygen Concentration - - Weight 67.3 kg (148 lb 6.4 oz) 03/10/2024 7:44 A M SEWER CONTRACTOR Height 165.1 cm (5' 5) 03/10/2024 7:44 AM SEWER CONTRACTOR Body Mass Index 24.7 03/10/2024 7:44 AM SEWER CONTRACTOR Plan of Treatment Health Maintenance Due Date [...] TAMTRON - 09/21/2023 1:07 PM CDT CASE: [id number] PATIENT: VALENCIA BE SPECIMEN SOURCE: Cervical CLINICAL INFORMATION: Routine Screening; HPV typing requested SPECIMEN: A. THIN PREP PAP Imaging Directed Cytology PRIOR PAP SMEAR DIAGNOSES: DATE PATHOLOGY# DIAGNOSIS PHYSICIAN 10/22/21 [id number] SONYA CARTER NP GENERAL CATEGORIZATION: Negative for intraepithelial lesion or malignancy. SPECIMEN ADEQUACY: Satisfactory for evaluation. Interpretation performed by NIOCLAS TIPTON(ASCP). Electronically signed 09/17/2023 1:26:[address] [place] [id number] HPV RESULTS: Negative for High Risk [...] TICO TIPTON(ASC). Electronically signed 09/21/2023 1:07:[address] [place], [place] [id number] us Zora Umaña NP PATHOLOGY/CYTOLOGY ORDERABLES E dited Result - Final Performing Organization Address [facility]/ZIP Co de Phone Number BETH * HEPATITIS C ANTIBODY (12/22/2022 4:00 PM CDT) Hepatitis C IgG Antibody NONREACTIVE (NEG) NONREACTIVE (NEG) [facility] Hep C IgG Comment SEE NOTES [facility] Comment: THIS ASSAY HAS NOT BEEN FDA CLEARED OR APPROVED FOR THE SCREENING OF BLOOD OR PLASMA DONORS. TEST PERFORMED USING [employer] Blood specimen (specimen) 12/22/2022 4:00 PM CDT 12/22/2022 4:07 PM CDT us Alyssa Sanches MD IMMUNOLOGY ORDERABLES Final R esult Performing Organization Address [facility]/ZIP Co de Phone Number [facility] [address] [place] [address] from Last 3 Months or Most Recently Relevant to Health Maintenance Insurance ANTHEM/BCBS ANTHEM/BCBS ANTHEM/BCBS ANTHEM/BCBS ANTHEM/BCBS ANTHEM/BCBS Advance Directives * Full Code (Latest Code Status on File) Date Activated Date Inactivated Comments 08/02/2023 2:28 AM
== END 2025-02-19 07:56 | disposition home or self-care (01) ==
PROVIDERS: PCP Obstetrics & Gynecology; Visit Provider Obstetrics & Gynecology
DX: R79.89 Other specified abnormal findings of blood chemistry (principal)
CPT/HCPCS: 76705